=== PATIENT | female | born 1930 | race Caucasian/White ===

== ENCOUNTER → 2016-08-27 | Outpatient (CLI) | payer MEDICARE, BC ==
--- NOTE | 2016-08-27 14:43 | XR ---
EXAMINATION TYPE: XR abdomen 1V DATE OF EXAM: 08/27/2016 2:37 PM COMPARISON: 04/15/2016 INDICATION: Kidney stones TECHNIQUE: Single view abdomen frontal view FINDINGS: There is a normal bowel gas pattern. Psoas margins are normal. No organomegaly is present. Multiple calcifications overlying the spleen may be a splenic granuloma. A 1.0 cm calcifications over the inferior pole left kidney likely is a renal stone. There is a suggestion of some faint renal sto joanne over the inferior pole right kidney. IMPRESSION: 1. Inferior pole renal stones largest on the left 1.0 cm. 2. Probable splenic granuloma
== END | disposition home or self-care (01) ==
LOC: RADXRMAIN 14:18
PROVIDERS: ATTEND Urology
DX: N20.0 Calculus of kidney (principal)
CPT/HCPCS: 74000

== ENCOUNTER 2019-02-25 06:25 | Emergency (ER) | payer MEDICARE, BC ==
[2019-02-25 06:32] VITALS: BP 153/68; PULSE 60; RESP 18; TEMP 98.1
[2019-02-25] MEDS ORDERED: SODIUM CHLORIDE 0.9% 1,000 ML IV STA ×2 (06:32)
[2019-02-25] MEDS ORDERED: ONDANSETRON 4 MG/2 ML VIAL IVP STA (06:32)
[2019-02-25] MEDS ORDERED: HYDROmorphone 1 MG/ML 1 ML SYRINGE IVP STA ×2 (06:40→07:27)
--- NOTE | 2019-02-25 06:44 | ED ---
Abdominal Pain HPI - General Chief Complaint: Abdominal Pain Stated Complaint: Poss Kidney Stones Time Seen by Provider: 02/25/19 06:32 Source: patient, RN notes reviewed, old records reviewed Mode of arrival: wheelchair Limitations: no limitations - History of Present Illness Initial Comments: Patient sustained 8-year-old female with a history of kidney stones. She presents today with 2 days of left-sided flank and lower abdominal pain. She is concerned for another kidney stone. All of her P previous kidney since had be surgically removed. Patient states that she does see Dr. Ilya Cifuentes for previous kidney stones. Patient denies any fevers or chills. She states that she's been taking some Tylenol for pain with little relief. Patient states that she's had a small amount of urine production as well as small bowel movements over the past few days. She denies any vomiting but does report severe nausea. - Related Data Home Medications Medication Instructions Recorded Confirmed Biotin 5 mg PO DAILY 09/26/15 02/25/19 Cyanocobalamin [Vitamin B-12] 500 mcg PO DAILY 09/26/15 02/25/19 Ergocalciferol [Vitamin D2 50,000 unit PO TU 09/26/15 02/25/19 (DRISDOL)] Lactase [Lactaid] 3,000 unit PO DAILY PRN 09/26/15 02/25/19 Metoprolol Succinate [Toprol XL] 100 mg PO HS 09/26/15 02/25/19 Multivitamins, Thera [Multivitamin] 1 tab PO HS 09/26/15 02/25/19 Omeprazole 40 mg PO 09/26/15 02/25/19 Spironolactone 50 mg PO DAILY PRN 09/26/15 02/25/19 Telmisartan [Micardis] 80 mg PO QAM 09/26/15 02/25/19 Ubidecarenone [Co Q-10] 100 mg PO QAM 09/26/15 02/25/19 amLODIPine [Norvasc] 10 mg PO HS 09/26/15 02/25/19 ALPRAZolam [Xanax] 0.25 mg PO HS PRN 01/16/16 02/25/19 Montelukast [Singulair] 10 mg PO HS 01/16/16 02/25/19 Budecort 200 2 puff INHALATION RT-DAILY 03/21/16 02/25/19 Levothyroxine Sodium [Synthroid] 137 mcg PO DAILY 02/25/19 02/25/19 Previous Rx's Medication Instructions Recorded HYDROcodone/APAP 5-325MG [Elmore 1 tab PO Q6HR PRN #10 tab 02/25/19 5-325] Ondansetron Odt [Zofran Odt] 4 mg PO Q8HR PRN #12 tab 02/25/19 Allergies Allergy/AdvReac Type Severity Reaction Status Date / Time aspirin Allergy Rash/Hives Verified 02/25/19 08:37 flunisolide [From Nasarel] Allergy Rash/Hives Verified 02/25/19 08:37 ibuprofen Allergy Rash/Hives Verified 02/25/19 08:37 morphine Allergy red Verified 02/25/19 08:37 streaking when given in the IV atorvastatin calcium AdvReac Abdominal Verified 02/25/19 08:37 [From Lipitor] Pain clonidine HCl [From Catapres] AdvReac HYPERTENSIO Verified 02/25/19 08:37 N fenofibrate nanocrystallized AdvReac Abdominal Verified 02/25/19 08:37 [From Tricor] Pain fenofibrate,micronized AdvReac Abdominal Verified 02/25/19 08:37 [From Tricor] Pain lactose AdvReac Diarrhea Verified 02/25/19 08:37 losartan [Losartan] AdvReac Confusion Verified 02/25/19 08:37 nedocromil sodium AdvReac Unknown Verified 02/25/19 08:37 [From Tilade] Niacin Preparations AdvReac skin Verified 02/25/19 08:37 tenderness pirbuterol acetate AdvReac Rapid Verified 02/25/19 08:37 [From Maxair Autohaler] Heart Rate simvastatin [From Zocor] AdvReac Abdominal Verified 02/25/19 08:37 Pain Kmdyfgz-Rfe-Ghi Reductase AdvReac Abdominal Verified 02/25/19 08:37 Inhibitor Pain TAPE AdvReac BLISTERING Uncoded 02/25/19 08:37 AND SKIN TEARING WTIH SURGICAL TAPE W/ OR . Review of Systems ROS Statement: Those systems with pertinent positive or pertinent negative responses have been documented in the HPI. ROS Other: All systems not noted in ROS Statement are negative. Past Medical History Past Medical History: Coronary Artery Disease (CAD), Cancer, Chest Pain / Angina, Diabetes Mellitus, Deep Vein Thrombosis (DVT), Hearing Disorder / Deafness, Hyperlipidemia, Myocardial Infarction ([place]), Skin Disorder, Sleep Apnea/CPAP/BIPAP Additional Past Medical History / Comment(s): 10/06/15 EC VISIT, FALL WITH HEAD INJURY, CT SCAN WAS NEG. HISTORY OF TACHYCARDIA. SOB, LEG SWELLING. WAS NOT GIVEN BLOOD THINNERS FOR DVT. Skin ca. Kidney stones Last Myocardial Infarction Date:: AUGUST 1993 History of Any Multi-Drug Resistant Organisms: None Reported Past Surgical History: Appendectomy, Cholecystectomy, Heart Catheterization, Hysterectomy, Tonsillectomy Additional Past Surgical History / Comment(s): HEART CATH ANGIOPLASTY (1993). carpel sydney throat skin, lithotrypsy Past Anesthesia/Blood Transfusion Reactions: Motion Sickness Past Psychological History: Anxiety Smoking Status: Former smoker Past Alcohol Use History: None Reported Past Drug Use History: None Reported - Past Family History Father Additional Family Medical History / Comment(s): RUPTURED ANUERYSM. Mother Additional Family Medical History / Comment(s): skin ca General Exam - General Exam Comments Initial Comments: This is a [age]-year-old female. Alert and oriented. No distress. Limitations: no limitations General appearance: alert, in no apparent distress Head exam: Present: atraumatic, normocephalic, normal inspection Eye exam: Present: normal appearance, PERRL, EOMI. Absent: scleral icterus, conjunctival injection, periorbital swelling ENT exam: Present: normal oropharynx Neck exam: Present: normal inspection. Absent: tenderness, meningismus, lymphadenopathy Respiratory exam: Present: normal lung sounds bilaterally. Absent: respiratory distress, wheezes, rales, rhonchi, stridor Cardiovascular Exam: Present: regular rate, normal rhythm, normal heart sounds. Absent: systolic murmur, diastolic murmur, rubs, gallop, clicks GI/Abdominal exam: Present: soft, tenderness (Left lower quadrant tenderness, l eft CVA tenderness. Evidence of scarring from previous stenting procedures over bilateral flanks. ), normal bowel sounds. Absent: distended, guarding, rebound, rigid Extremities exam: Present: normal inspection, full ROM, normal capillary refill. Absent: tenderness, pedal edema, joint swelling, calf tenderness Back exam: Present: normal inspection, CVA tenderness (L) Psychiatric exam: Present: normal affect, normal mood Skin exam: Present: warm, dry, intact, normal color. Absent: rash Course Vital Signs 02/25/19 06:29 Temperature 98.1 F Pulse Rate 60 Respiratory 18 Rate Blood Pressure 153/68 O2 Sat by Pulse 95 Oximetry Medical Decision Making - Medical Decision Making This is a pleasant 88 rolled female, she presents today for evaluation for concern for left-sided flank pain for the past 2 days, nausea. At this time patient's labwork was reviewed. Blood work was reviewed and unremarkable. Normal kidney function. Urinalysis is positive for multiple red blood cells but no other signs of infection including white blood cells or bacteria. Patient at this time did receive computed tomography scan. His evidence of a 0.5 cm stone in the distal UVJ. There is multiple remaining renal colliculi bilaterally. There is mild to moderate hydronephrosis over the left ureter. Patient was informed of these results. On reevaluation she has no further pain and states she feels well like to be discharged home. I did discuss with the Patient she needs to increase her fluid intake, will discharge Patient with a prescription for nausea medicine and pain medicine. Discussed the case with Dr. Scott. All questions were answered and return parameters were discussed. - Lab Data Result diagrams: 02/25/19 06:48 02/25/19 06:48 Lab Results 02/25/19 02/25/19 02/25/19 Range/Units 06:48 06:48 06:48 WBC 11.1 H (3.8-10.6) k/uL RBC 4.76 (3.80-5.40) m/uL Hgb 14.3 (11.4-16.0) gm/dL Hct 42.3 (34.0-46.0) % MCV 88.9 (80.0-100.0) fL MCH 30.0 (25.0-35.0) pg MCHC 33.8 (31.0-37.0) g/dL RDW 12.4 (11.5-15.5) % Plt Count 192 (150-450) k/uL Neutrophils % 80 % Lymphocytes % 14 % Monocytes % 3 % Eosinophils % 1 % Basophils % 1 % Neutrophils # 8.9 H (1.3-7.7) k/uL Lymphocytes # 1.5 (1.0-4.8) k/uL Monocytes # 0.4 (0-1.0) k/uL Eosinophils # 0.2 (0-0.7) k/uL Basophils # 0.1 (0-0.2) k/uL PT 11.1 (9.0-12.0) sec INR 1.1 (<1.2) APTT 27.3 (22.0-30.0) sec Sodium 138 (137-145) mmol/L Potassium 4.4 (3.5-5.1) mmol/L Chloride 101 (98-107) mmol/L Carbon Dioxide 24 (22-30) mmol/L Anion Gap 13 mmol/L BUN 16 (7-17) mg/dL Creatinine 0.96 (0.52-1.04) mg/dL Est GFR (CKD-EPI)AfAm 62 (>60 ml/min/1.73 sqM) Est GFR (CKD-EPI)NonAf 54 (>60 ml/min/1.73 sqM) Glucose 156 H (74-99) mg/dL POC Glucose (mg/dL) (75-99) mg/dL POC Glu Bowling Ball Grader ID Calcium 9.6 (8.4-10.2) mg/dL Total Bilirubin 1.0 (0.2-1.3) mg/dL AST 28 (14-36) U/L ALT 22 (9-52) U/L Alkaline Phosphatase 91 (38-126) U/L Troponin I (0.000-0.034) ng/mL Total Protein 8.0 (6.3-8.2) g/dL Albumin 4.5 (3.5-5.0) g/dL Amylase 53 (30-110) U/L Lipase 84 (23-300) U/L Urine Color Urine Appearance (Clear) Urine pH (5.0-8.0) Ur Specific [place] (1.001-1.035) Urine Protein (Negative) Urine Glucose (UA) (Negative) Urine Ketones (Negative) Urine Blood (Negative) Urine Nitrite (Negative) Urine Bilirubin (Negative) Urine Urobilinogen (<2.0) mg/dL Ur Leukocyte Esterase (Negative) Urine RBC (0-5) /hpf Urine WBC (0-5) /hpf Ur Squamous Epith Cells (0-4) /hpf 1002/25/19 02/25/19 Range/Units 06:48 07:45 08:24 WBC (3.8-10.6) k/uL RBC (3.80-5.40) m/uL Hgb (11.4-16.0) gm/dL Hct (34.0-46.0) % MCV (80.0-100.0) fL MCH (25.0-35.0) pg MCHC (31.0-37.0) g/dL RDW (11.5-15.5) % Plt Count (150-450) k/uL Neutrophils % % Lymphocytes % % Monocytes % % Eosinophils % % Basophils % % Neutrophils # (1.3-7.7) k/uL Lymphocytes # (1.0-4.8) k/uL Monocytes # (0-1.0) k/uL Eosinophils # (0-0.7) k/uL Basophils # (0-0.2) k/uL PT (9.0-12.0) sec INR (<1.2) APTT (22.0-30.0) sec Sodium (137-145) mmol/L Potassium (3.5-5.1) mmol/L Chloride (98-107) mmol/L Carbon Dioxide (22-30) mmol/L Anion Gap mmol/L BUN (7-17) mg/dL Creatinine (0.52-1.04) mg/dL Est GFR (CKD-EPI)AfAm (>60 ml/min/1.73 sqM) Est GFR (CKD-EPI)NonAf (>60 ml/min/1.73 sqM) Glucose (74-99) mg/dL POC Glucose (mg/dL) 151 H (75-99) mg/dL POC Glu Bowling Ball Grader ID Anna Hawthorne Calcium (8.4-10.2) mg/dL Total Bilirubin (0.2-1.3) mg/dL AST (14-36) U/L ALT (9-52) U/L Alkaline Phosphatase (38-126) U/L Troponin I <0.012 (0.000-0.034) ng/mL Total Protein (6.3-8.2) g/dL Albumin (3.5-5.0) g/dL Amylase (30-110) U/L Lipase (23-300) U/L Urine Color Light Yellow Urine Appearance Clear (Clear) Urine pH 7.0 (5.0-8.0) Ur Specific [place] 1.009 (1.001-1.035) Urine Protein Negative (Negative) Urine Glucose (UA) Negative (Negative) Urine Ketones Negative (Negative) Urine Blood Small H (Negative) Urine Nitrite Negative (Negative) Urine Bilirubin Negative (Negative) Urine Urobilinogen <2.0 (<2.0) mg/dL Ur Leukocyte Esterase Negative (Negative) Urine RBC 58 H (0-5) /hpf Urine WBC 1 (0-5) /hpf Ur Squamous Epith Cells <1 (0-4) /hpf 02/25/19 06:45 EKG shows sinus rhythm with PACs, left axis deviation, inferior infarct and anterior rotation determined. Ventricular rate of 63 bpm. NV interval is 190 ms. QRS duration 74 ms. QT QTc is 398/407 ms. - Radiology Data Radiology results: report reviewed Obstructing distal left ureter vesicle junction measuring 0.5 cm. Nonobstructing distal right ureterovesical junction stone measuring to submit.2 cm. Multiple bilateral obstructing renal stones. Moderate left hydronephrosis and hydroureter at the UVJ. Diverticulosis without diverticulitis. Disposition Clinical Impression: Left ureteral stone Disposition: HOME SELF-CARE Condition: Good Instructions (If sedation given, give patient instructions): Ureteral Stones (ED) Additional Instructions: Please use medication as discussed. Please follow up with family doctor if symptoms have not improved over the next two days. Please return to the emergency room if your symptoms increase or worsen or for any other concerns. She advised a follow-up with urologist. Prescriptions: HYDROcodone/APAP 5-325MG [Elmore 5-325] 1 tab PO Q6HR PRN #10 tab PRN Reason: Pain Ondansetron Odt [Zofran Odt] 4 mg PO Q8HR PRN #12 tab PRN Reason: Pain Is patient prescribed a controlled substance at d/c from ED?: No Referrals: Greer Darling DO [Primary Care Provider] - 1-2 days Jimy Galeano MD [STAFF PHYSICIAN] - 1-2 days Time of Disposition: 10:22
[2019-02-25 07:00] LABS: Basophils # (A) 0.1 k/uL (0-0.2); Basophils % (A) 1 %; Eosinophils # (A) 0.2 k/uL (0-0.7); Eosinophils % (A) 1 %; HCT 42.3 % (34.0-46.0); HGB 14.3 gm/dL (11.4-16.0); Lymphocytes # (A) 1.5 k/uL (1.0-4.8); Lymphocytes % (A) 14 %; MCHC 33.8 g/dL (31.0-37.0); MCV 88.9 fL (80.0-100.0); Mean Platelet Volume 7.1; Monocytes # (A) 0.4 k/uL (0-1.0); Monocytes % (A) 3 %; Neutrophils # (A) 8.9 k/uL (1.3-7.7); Neutrophils % (A) 80 %; Platelet Count 192 k/uL (150-450); RBC 4.76 m/uL (3.80-5.40); RDW 12.4 % (11.5-15.5); WBC 11.1 k/uL (3.8-10.6)
[2019-02-25 07:09] LABS: INR 1.1 (<1.2); Partial Thromboplastin Time 27.3 sec (22.0-30.0); Prothrombin Time 11.1 sec (9.0-12.0)
[2019-02-25 07:11] LABS: Albumin 4.5 g/dL (3.5-5.0); Calcium 9.6 mg/dL (8.4-10.2); Potassium 4.4 mmol/L (3.5-5.1)
--- NOTE | 2019-02-25 07:28 | XR ---
EXAMINATION TYPE: XR KUB DATE OF EXAM: 02/25/2019 7:23 AM CLINICAL HISTORY: Abdominal pain TECHNIQUE: Single upright image of the abdomen is obtained. COMPARISON: 03/27/2016 FINDINGS: There are multiple left renal calculi, at least 5 in number with calcifications renal shado w and therefore additional left renal calculi are possible. The largest calculi in the left measure 1 .2 and 1.0 cm. On the right there is a solitary 4 mm 0.4 cm calculus. Cholecystectomy clips are seen. There is tortuosity and atherosclerosis of the descending thoracic aorta. Extensive degenerative jamila nges of the spine. Calcified right basilar granuloma. Moderate degenerative changes of the femoral ac etabular joints. No dilated large or small bowel. IMPRESSION: 1. Bilateral renal calculi with the largest calculus on the prior of 03/27/2016 passed in the interim 2. Nonobstructive bowel gas pattern.
[2019-02-25 08:19] LABS: Appearance,Urine Clear (Clear); Bilirubin,Urine Negative (Negative); Blood,Urine Small (Negative); Color,Urine Light Yellow; Glucose,Urine (UA) Negative (Negative); Ketones,Urine Negative (Negative); Leukocyte Esterase,Urine Negative (Negative); Nitrite,Urine Negative (Negative); Protein,Urine Negative (Negative); RBC,Urine 58 /hpf (0-5); Specific Gravity,Urine 1.009 (1.001-1.035); Squamous Epithelial Cell,Urine <1 /hpf (0-4); Urobilinogen,Urine <2.0 mg/dL (<2.0)
[2019-02-25 08:33] LABS: Glucose,Whole Blood 151 mg/dL (75-99)
[2019-02-25] MEDS ORDERED: METOCLOPRAMIDE 5 MG/ML 2 ML VIAL IVP STA (08:51)
--- NOTE | 2019-02-25 09:17 | CT ---
EXAMINATION TYPE: CT abdomen pelvis wo con DATE OF EXAM: 02/25/2019 COMPARISON: None INDICATION: Possible kidney stones DLP: 655.9 mGycm, Automated exposure control for dose reduction was used. CONTRAST: 0 mL of Isovue 300. Study performed without Oral Contrast TECHNIQUE: Axial images were obtained from above the diaphragm to the pubic rami in the axial plane a t 5 mm thick sections. Reconstructed images are reviewed on the computer in the coronal plane. FINDINGS: Limited CT sections are obtained the lung bases. The lung bases are clear. Vascular calcifications within the descending thoracic aorta. Coronary artery calcifications present. 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 CT ABDOMEN: Liver: Normal Spleen: Multiple calcified granuloma are scattered through the spleen. Pancreas: Slightly atrophic. Adrenal glands: The adrenal glands are normal. Gallbladder: Surgically absent Kidneys: No masses are evident. No cysts are present. There is a moderate left hydronephrosis and hy droureter. This extends to the left ureterovesical junction. There is an obstructing 0.5 cm calcifica tion at the ureterovesical junction on the left with a couple of punctate additional calcification sl ightly more proximal. A punctate distal right ureteral vesicle junction stone measuring 0.2 cm is not excluded. No hydronephrosis or hydroureter is evident. There is an extrarenal pelvis on the right. T here are additional calcifications within the bilateral kidneys. The largest in the inferior pole lef t kidney measuring 1.1 cm with an additional nonobstructing 1.0 cm calcification in the mid left kidn ey. Additional punctate calcifications are within the left kidney and small calcifications without ob struction or right kidney. Aorta: Vascular calcification is within the aorta. There is prominence of the abdominal aorta with t he greatest AP diameter in the infrarenal region measuring 3.3 cm previously this terminates above th e bifurcation. Inferior vena cava: Normal. CT PELVIS: Loops of bowel within the abdomen and pelvis are normal. This study is performed without oral con trast limiting bowel evaluation. There are scattered diverticuli evident of the colon without evidenc e of acute diverticulitis. Appendix: Not identified. No suspicious dilated tubular structure or inflammatory changes are evident . Urinary bladder: Normal. Genitourinary structures: Uterus is not identified. Osseous structures: No suspicious lytic or sclerotic lesions. IMPRESSIONS: 1. Obstructing distal left ureteral vesicle junction stone measuring 0.5 cm. 2. A nonobstructing distal right ureteral vesicle junction stone measuring 0.2 cm may also be present . 3. Multiple bilateral nonobstructing renal stones. 4. Moderate left hydronephrosis and hydroureter to the ureterovesical junction. 5. Diverticulosis without acute diverticulitis.
[2019-02-25] MEDS ORDERED: TAMSULOSIN 0.4 MG CAP.ER.24H PO STA (09:23)
== END 2019-02-25 11:07 | disposition home or self-care (01) ==
LOC: EC 06:25
DX: N13.2 Hydronephrosis with renal and ureteral calculous obstruction (principal); I25.10 Atherosclerotic heart disease of native coronary artery without angina pectoris; I25.2 Old myocardial infarction; G47.30 Sleep apnea, unspecified; Z99.89 Dependence on other enabling machines and devices; Z85.828 Personal history of other malignant neoplasm of skin; Z90.49 Acquired absence of other specified parts of digestive tract; Z95.818 Presence of other cardiac implants and grafts; Z90.710 Acquired absence of both cervix and uterus; Z87.891 Personal history of nicotine dependence; Z79.51 Long term (current) use of inhaled steroids; Z79.890 Hormone replacement therapy; Z79.899 Other long term (current) drug therapy; Z88.6 Allergy status to analgesic agent; Z88.8 Allergy status to other drugs, medicaments and biological substances; Z88.5 Allergy status to narcotic agent; Z91.011 Allergy to milk products; Z91.048 Other nonmedicinal substance allergy status
CPT/HCPCS: 36415; 93005; 80053; 82150; 83690; 84484; 85025; 85610; 85730; 81001; 74018; 74176; 99285; 96374; 96375 ×2; 96376; 96361 ×4; J2765; J2405; J1170

== ENCOUNTER 2021-03-22 14:16 | Observation (INO) | payer MEDICARE, BC ==
[2021-03-22 15:32] LABS: Basophils % (A) 0 %; Eosinophils # (A) 0.1 k/uL (0-0.7); Eosinophils % (A) 2 %; HCT 42.6 % (34.0-46.0); HGB 14.8 gm/dL (11.4-16.0); Lymphocytes # (A) 1.5 k/uL (1.0-4.8); Lymphocytes % (A) 21 %; MCH 31.3 pg (25.0-35.0); MCHC 34.8 g/dL (31.0-37.0); MCV 89.7 fL (80.0-100.0); Monocytes # (A) 0.3 k/uL (0-1.0); Monocytes % (A) 4 %; Neutrophils # (A) 5.1 k/uL (1.3-7.7); Neutrophils % (A) 72 %; Platelet Count 164 k/uL (150-450); RBC 4.74 m/uL (3.80-5.40); WBC 7.1 k/uL (3.8-10.6)
[2021-03-22 15:40] LABS: ALT 18 U/L (4-34); AST 27 U/L (14-36); African American GFR (CKD) 56 (>60 ml/min/1.73 sqM); Albumin 4.1 g/dL (3.5-5.0); Alcohol <10 mg/dL; Alkaline Phosphatase 77 U/L (38-126); Anion Gap 11 mmol/L; Blood Urea Nitrogen 28 mg/dL (7-17); Calcium 9.6 mg/dL (8.4-10.2); Carbon Dioxide 23 mmol/L (22-30); Chloride 103 mmol/L (98-107); Glucose 168 mg/dL (74-99); Non-African American GFR(CKD) 49 (>60 ml/min/1.73 sqM); Potassium 3.6 mmol/L (3.5-5.1); Sodium 137 mmol/L (137-145); Total Bilirubin 0.5 mg/dL (0.2-1.3); Total Protein 7.4 g/dL (6.3-8.2)
[2021-03-22 17:10] LABS: Appearance,Urine Clear (Clear); Bilirubin,Urine Negative (Negative); Blood,Urine Trace (Negative); Color,Urine Light Yellow; Glucose,Urine (UA) Negative (Negative); Hyaline Casts,Urine 3 /lpf (0-2); Ketones,Urine Negative (Negative); Leukocyte Esterase,Urine Negative (Negative); Mucus,Urine Rare /hpf; Nitrite,Urine Negative (Negative); Protein,Urine Trace (Negative); RBC,Urine 7 /hpf (0-5); Specific Gravity,Urine 1.016 (1.001-1.035); Squamous Epithelial Cell,Urine 1 /hpf (0-4); Urobilinogen,Urine <2.0 mg/dL (<2.0); WBC,Urine 2 /hpf (0-5)
[2021-03-22 17:12] LABS: Amphetamine Screen,Urine Not Detected (NotDetected); Barbiturate Screen,Urine Not Detected (NotDetected); Benzodiazepines Screen,Urine Not Detected (NotDetected); Cocaine Screen,Urine Not Detected (NotDetected); Methadone Screen, Urine Not Detected (NotDetected); Opiate Screen,Urine Not Detected (NotDetected); Oxycodone Screen, Urine Not Detected (NotDetected); Phencyclidine Screen,Urine Not Detected (NotDetected); Tricyclic Antidepressant,Urine Not Detected (NotDetected); Urn Cannabinoid Scrn Not Detected (NotDetected)
--- NOTE | 2021-03-22 19:13 | CT ---
EXAMINATION: CT brain wo con DATE AND TIME: 03/22/2021 6:39 PM CLINICAL INDICATION: PHH; ataxia TECHNIQUE: Departmental protocol. DLP: 1191.8 mGy-cm COMPARISON: 10/06/2015 FINDINGS: The calvarium is intact. There is no intracranial hemorrhage. There is no intracranial mass or mass effect. No definite new intra-axial or extra-axial attenuation defect. The paranasal sinuses, middle ear cavities, and mastoid sinus air cells are clear. The orbits are unremarkable. IMPRESSION: NO ACUTE PROCESS.
--- NOTE | 2021-03-22 19:16 | ED ---
Weakness HPI - General Chief complaint: Weakness Stated complaint: Dizzy, Blur Vision, vomiting Time Seen by Provider: 03/22/21 14:25 Source: patient Mode of arrival: wheelchair Limitations: no limitations - History of Present Illness Initial comments: 89-year-old female with multiple medical conditions presents to the emergency department with reported ataxia. Patient reports that she has had multiple episodes of feeling off balance over the past couple of months. Original episode was in January however the patient reports it was mild. She has had few additional episodes, today being the worst. Symptoms started around 11:00. She was unable to stand up straight and used a wall to ambulate. Began having some blurred vision. Denies any headaches. Admits to nausea with an episode of vomiting. No unilateral numbness or weakness. She has not been evaluated for these episodes previously. No history of strokes. Denies any ear pain. No other alleviating, precipitating or modifying factors - Related Data Home Medications Medication Instructions Recorded Confirmed Biotin 5 mg PO DAILY 09/26/15 03/22/21 Lactase [Lactaid] 3,000 unit PO DAILY PRN 09/26/15 03/22/21 Metoprolol Succinate [Toprol XL] 100 mg PO DAILY 09/26/15 03/22/21 Multivitamins, Thera [Multivitamin 1 tab PO DAILY 09/26/15 03/22/21 (formulary)] Omeprazole 40 mg PO DAILY 09/26/15 03/22/21 Ubidecarenone [Co Q-10] 200 mg PO DAILY 09/26/15 03/22/21 amLODIPine [Norvasc] 10 mg PO DAILY 09/26/15 03/22/21 ALPRAZolam [Xanax] 0.25 mg PO QID PRN 01/16/16 03/22/21 Montelukast [Singulair] 10 mg PO HS 01/16/16 03/22/21 Levothyroxine Sodium [Synthroid] 125 mcg PO DAILY 03/22/21 03/22/21 Pyridoxine HCl (Vitamin B6) 100 mg PO DAILY 03/22/21 03/22/21 [Vitamin B-6] Telmisartan/Hydrochlorothiazid 1 tab PO DAILY 03/22/21 03/22/21 [Telmisartan-Hctz 80-12.5 mg Tb] Timolol 0.5% Ophth Soln [Timoptic 1 drop BOTH EYES DAILY 03/22/21 03/22/21 0.5% Ophth Soln] Previous Rx's Medication Instructions Recorded Meclizine [Antivert] 12.5 mg PO BID PRN #15 tab 03/24/21 Allergies Allergy/AdvReac Type Severity Reaction Status Date / Time aspirin Allergy Rash/Hives Verified 03/22/21 18:15 flunisolide [From Nasarel] Allergy Rash/Hives Verified 03/22/21 18:15 ibuprofen Allergy Rash/Hives Verified 03/22/21 18:15 morphine Allergy red Verified 03/22/21 18:15 streaking when given in the IV atorvastatin calcium AdvReac Abdominal Verified 03/22/21 18:15 [From Lipitor] Pain clonidine HCl [From Catapres] AdvReac HYPERTENSIO Verified 03/22/21 18:15 N fenofibrate nanocrystallized AdvReac Abdominal Verified 03/22/21 18:15 [From Tricor] Pain fenofibrate,micronized AdvReac Abdominal Verified 03/22/21 18:15 [From Tricor] Pain lactose AdvReac Diarrhea Verified 03/22/21 18:15 losartan [Losartan] AdvReac Confusion Verified 03/24/21 14:56 nedocromil sodium AdvReac Unknown Verified 03/22/21 18:15 [From Tilade] Niacin Preparations AdvReac skin Verified 03/22/21 18:15 tenderness pirbuterol acetate AdvReac Rapid Verified 03/22/21 18:15 [From Maxair Autohaler] Heart Rate simvastatin [From Zocor] AdvReac Abdominal Verified 03/22/21 18:15 Pain Wgqzmds-Hdv-Cgl Reductase AdvReac Abdominal Verified 03/22/21 18:15 Inhibitor Pain TAPE AdvReac BLISTERING Uncoded 03/22/21 14:22 AND SKIN TEARING WTIH SURGICAL TAPE W/ OR . Review of Systems ROS Statement: Those systems with pertinent positive or pertinent negative responses have been documented in the HPI. ROS Other: All systems not noted in ROS Statement are negative. Past Medical History Past Medical History: Coronary Artery Disease (CAD), Cancer, Chest Pain / Angina, Diabetes Mellitus, Deep Vein Thrombosis (DVT), Hearing Disorder / Deafness, Hyperlipidemia, Myocardial Infarction ([place]), Skin Disorder, Sleep Apnea/CPAP/BIPAP Additional Past Medical History / Comment(s): 10/06/15 EC VISIT, FALL WITH HEAD INJURY, CT SCAN WAS NEG. HISTORY OF TACHYCARDIA. SOB, LEG SWELLING. WAS NOT GIVEN BLOOD THINNERS FOR DVT. Skin ca. Kidney stones Last Myocardial Infarction Date:: AUGUST 1993 History of Any Multi-Drug Resistant Organisms: None Reported Past Surgical History: Appendectomy, Cholecystectomy, Heart Catheterization, Hysterectomy, Tonsillectomy Additional Past Surgical History / Comment(s): HEART CATH ANGIOPLASTY (1993). carpel [place] throat skin, lithotrypsy Past Anesthesia/Blood Transfusion Reactions: Motion Sickness Past Psychological History: Anxiety Smoking Status: Never smoker Past Alcohol Use History: None Reported Past Drug Use History: None Reported - Past Family History Father Additional Family Medical History / Comment(s): RUPTURED ANUERYSM. Mother Additional Family Medical History / Comment(s): skin ca General Exam Limitations: no limitations General appearance: alert, in no apparent distress Head exam: Present: atraumatic, normocephalic, normal inspection Eye exam: Present: normal appearance, PERRL, EOMI. Absent: scleral icterus, conjunctival injection, periorbital swelling ENT exam: Present: normal exam, mucous membranes moist Neck exam: Present: normal inspection. Absent: tenderness, meningismus, lymphadenopathy Respiratory exam: Present: normal lung sounds bilaterally. Absent: respiratory distress, wheezes, rales, rhonchi, stridor Cardiovascular Exam: Present: regular rate, normal rhythm, normal heart sounds. Absent: systolic murmur, diastolic murmur, rubs, gallop, clicks GI/Abdominal exam: Present: soft, normal bowel sounds. Absent: distended, tenderness, guarding, rebound, rigid Extremities exam: Present: normal inspection, full ROM, normal capillary refill. Absent: tenderness, pedal edema, joint swelling, calf tenderness Back exam: Present: normal inspection Neurological exam: Present: alert, oriented X3, CN II-XII intact Psychiatric exam: Present: normal affect, normal mood Skin exam: Present: warm, dry, intact, normal color. Absent: rash Course Vital Signs 03/22/21 03/23/21 03/23/21 14:23 01:06 06:56 Temperature 98.1 F Pulse Rate 64 106 H 73 Respiratory 18 16 17 Rate Blood Pressure 148/62 137/84 131/69 O2 Sat by Pulse 97 95 95 Oximetry 03/23/21 03/23/21 08:42 10:14 Temperature Pulse Rate 124 H 110 H Respiratory 18 18 Rate Blood Pressure 130/72 127/75 O2 Sat by Pulse 99 98 Oximetry EKG Findings - EKG Comments: EKG Findings:: EKG demonstrates a sinus tachycardia with a ventricular rate of 111. OK interval 170. QRS 72. QTC 446. No acute ST segment elevations. Inverted T-wave in 3 and aVL. EKG is done at 2251 which demonstrates a sinus rhythm with occasional PVCs. Rate of 65. OK interval 186. QRS 80. QTC of 359. No acute ST segment elevations or depressions Medical Decision Making - Medical Decision Making Upon arrival patient was placed into room 27. A thorough history and physical exam was performed. IV is established and laboratory studies were conducted. Patient is a symptomatic at this time stating that her symptoms only lasted for hours. Laboratory studies are reviewed. 12-lead EKG was performed which d emonstrates a sinus tachycardia. Patient did go for CT of the brain as well as CT angiography due to her reported ataxia which demonstrates no acute occlusions. The patient is asymptomatic at this time. Review of the bedside monitor demonstrates that the patient has a markedly variation her heart rate. She does bradycardia down into the 40s with quick return up to a sinus tachycardia up to 115. 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 Spoke with Dr. Stiles who agreed to admit the patient. Will consult neurology and cardiology. Patient remained in stable condition awaiting a bed on the floor - Lab Data Result diagrams: 03/23/21 07:20 03/24/21 06:18 Lab Results 03/22/21 03/22/21 03/22/21 Range/Units 15:21 15:21 16:17 WBC 7.1 (3.8-10.6) k/uL RBC 4.74 (3.80-5.40) m/uL Hgb 14.8 (11.4-16.0) gm/dL Hct 42.6 (34.0-46.0) % MCV 89.7 (80.0-100.0) fL MCH 31.3 (25.0-35.0) pg MCHC 34.8 (31.0-37.0) g/dL RDW 12.0 (11.5-15.5) % Plt Count 164 (150-450) k/uL MPV 8.0 Neutrophils % 72 % Lymphocytes % 21 % Monocytes % 4 % Eosinophils % 2 % Basophils % 0 % Neutrophils # 5.1 (1.3-7.7) k/uL Lymphocytes # 1.5 (1.0-4.8) k/uL Monocytes # 0.3 (0-1.0) k/uL Eosinophils # 0.1 (0-0.7) k/uL Basophils # 0.0 (0-0.2) k/uL Sodium 137 (137-145) mmol/L Potassium 3.6 (3.5-5.1) mmol/L Chloride 103 (98-107) mmol/L Carbon Dioxide 23 (22-30) mmol/L Anion Gap 11 mmol/L BUN 28 H (7-17) mg/dL Creatinine 1.03 (0.52-1.04) mg/dL Est GFR (CKD-EPI)AfAm 56 (>60 ml/min/1.73 sqM) Est GFR (CKD-EPI)NonAf 49 (>60 ml/min/1.73 sqM) Glucose 168 H (74-99) mg/dL Calcium 9.6 (8.4-10.2) mg/dL Total Bilirubin 0.5 (0.2-1.3) mg/dL AST 27 (14-36) U/L ALT 18 (4-34) U/L Alkaline Phosphatase 77 (38-126) U/L Troponin I (0.000-0.034) ng/mL Total Protein 7.4 (6.3-8.2) g/dL Albumin 4.1 (3.5-5.0) g/dL TSH (0.465-4.680) mIU/L Urine Color Light Yellow Urine Appearance Clear (Clear) Urine pH 5.0 (5.0-8.0) Ur Specific [place] 1.016 (1.001-1.035) Urine Protein Trace H (Negative) Urine Glucose (UA) Negative (Negative) Urine Ketones Negative (Negative) Urine Blood Trace H (Negative) Urine Nitrite Negative (Negative) Urine Bilirubin Negative (Negative) Urine Urobilinogen <2.0 (<2.0) mg/dL Ur Leukocyte Esterase Negative (Negative) Urine RBC 7 H (0-5) /hpf Urine WBC 2 (0-5) /hpf Ur Squamous Epith Cells 1 (0-4) /hpf Hyaline Casts 3 H (0-2) /lpf Urine Mucus Rare H (None) /hpf Urine Opiates Screen Not Detected (NotDetected) Ur Oxycodone Screen Not Detected (NotDetected) Urine Methadone Screen Not Detected (NotDetected) Ur Propoxyphene Screen Not Detected (NotDetected) Ur Barbiturates Screen Not Detected (NotDetected) U Tricyclic Antidepress Not Detected (NotDetected) Ur Phencyclidine Scrn Not Detected (NotDetected) Ur Amphetamines Screen Not Detected (NotDetected) U Methamphetamines Scrn Not Detected (NotDetected) U Benzodiazepines Scrn Not Detected (NotDetected) Urine Cocaine Screen Not Detected (NotDetected) U Marijuana (THC) Screen Not Detected (NotDetected) Serum Alcohol <10 mg/dL 03/22/21 03/22/21 Range/Units 18:09 18:09 WBC (3.8-10.6) k/uL RBC (3.80-5.40) m/uL Hgb (11.4-16.0) gm/dL Hct (34.0-46.0) % MCV (80.0-100.0) fL MCH (25.0-35.0) pg MCHC (31.0-37.0) g/dL RDW (11.5-15.5) % Plt Count (150-450) k/uL MPV Neutrophils % % Lymphocytes % % Monocytes % % Eosinophils % % Basophils % % Neutrophils # (1.3-7.7) k/uL Lymphocytes # (1.0-4.8) k/uL Monocytes # (0-1.0) k/uL Eosinophils # (0-0.7) k/uL Basophils # (0-0.2) k/uL Sodium (137-145) mmol/L Potassium (3.5-5.1) mmol/L Chloride (98-107) mmol/L Carbon Dioxide (22-30) mmol/L Anion Gap mmol/L BUN (7-17) mg/dL Creatinine (0.52-1.04) mg/dL Est GFR (CKD-EPI)AfAm (>60 ml/min/1.73 sqM) Est GFR (CKD-EPI)NonAf (>60 ml/min/1.73 sqM) Glucose (74-99) mg/dL Calcium (8.4-10.2) mg/dL Total Bilirubin (0.2-1.3) mg/dL AST (14-36) U/L ALT (4-34) U/L Alkaline Phosphatase (38-126) U/L Troponin I <0.012 (0.000-0.034) ng/mL Total Protein (6.3-8.2) g/dL Albumin (3.5-5.0) g/dL TSH 2.240 (0.465-4.680) mIU/L Urine Color Urine Appearance (Clear) Urine pH (5.0-8.0) Ur Specific [place] (1.001-1.035) Urine Protein (Negative) Urine Glucose (UA) (Negative) Urine Ketones (Negative) Urine Blood (Negative) Urine Nitrite (Negative) Urine Bilirubin (Negative) Urine Urobilinogen (<2.0) mg/dL Ur Leukocyte Esterase (Negative) Urine RBC (0-5) /hpf Urine WBC (0-5) /hpf Ur Squamous Epith Cells (0-4) /hpf Hyaline Casts (0-2) /lpf Urine Mucus (None) /hpf Urine Opiates Screen (NotDetected) Ur Oxycodone Screen (NotDetected) Urine Methadone Screen (NotDetected) Ur Propoxyphene Screen (NotDetected) Ur Barbiturates Screen (NotDetected) U Tricyclic Antidepress (NotDetected) Ur Phencyclidine Scrn (NotDetected) Ur Amphetamines Screen (NotDetected) U Methamphetamines Scrn (NotDetected) U Benzodiazepines Scrn (NotDetected) Urine Cocaine Screen (NotDetected) U Marijuana (THC) Screen (NotDetected) Serum Alcohol mg/dL Disposition Clinical Impression: Tachy-cristhian syndrome, Ataxia, Nausea and vomiting Disposition: ADMITTED IP TO THIS [facility] Condition: Stable Is patient prescribed a controlled substance at d/c from ED?: No Decision to Admit Reason: Admit from EC Decision Date: 03/22/21 Decision Time: 20:26
--- NOTE | 2021-03-22 19:19 | CT ---
EXAMINATION TYPE: CT angio head neck with contrast and with 3-D Reconstruction rendering DATE OF EXAM: 03/22/2021 HISTORY: Ataxia COMPARISON: None CT DLP: 445.9 mGycm. Automated Exposure Control for Dose Reduction was Utilized. TECHNIQUE: CTA scan of the neck is performed with IV Contrast, patient injected with 65 mL of Isovue 370, axial images are obtained, coronal and sagittal reformatted images are reviewed. 3D reconstruct ed images are created on an independent workstation and reviewed. FINDINGS: ARTERIAL STRUCTURES: The right carotid system and the left carotid system are widely patent, without hemodynamically significant stenoses, dissection, or other focal abnormalities. The bilateral vertebral arterial systems are widely patent, without hemodynamically significant steno ses, dissection, or other focal abnormalities. The intracranial arterial structures demonstrate unremarkable anterior circulation and posterior circ ulation, without significant abnormalities. OTHER: No incidental dural venous finding, cervical venous finding, or extravascular findings through out the head and neck. IMPRESSION: NO SIGNIFICANT ABNORMALITY. NASCET criteria was used in interpretation of this exam?
[2021-03-22] MEDS ORDERED: NALOXONE 0.4 MG/ML 1 ML VIAL IV PRN (20:26)
[2021-03-23] MEDS ORDERED: LACTASE 3000 UNIT PO PRN (00:53)
[2021-03-23] MEDS: MONTELUKAST 10 MG TAB PO SCH ×2 (01:30→22:08)
[2021-03-23] MEDS ORDERED: ALPRAZolam 0.25 MG TAB PO PRN (06:00)
[2021-03-23 06:52] LABS: Glucose,Whole Blood 109 mg/dL (75-99)
[2021-03-23 08:04] LABS: Basophils % (A) 1 %; Eosinophils # (A) 0.1 k/uL (0-0.7); Eosinophils % (A) 2 %; HCT 43.1 % (34.0-46.0); HGB 14.9 gm/dL (11.4-16.0); Lymphocytes % (A) 34 %; MCHC 34.5 g/dL (31.0-37.0); MCV 89.9 fL (80.0-100.0); Mean Platelet Volume 7.8; Monocytes # (A) 0.3 k/uL (0-1.0); Monocytes % (A) 5 %; Neutrophils # (A) 3.4 k/uL (1.3-7.7); Neutrophils % (A) 57 %; Platelet Count 165 k/uL (150-450); RBC 4.79 m/uL (3.80-5.40); RDW 12.6 % (11.5-15.5); WBC 5.9 k/uL (3.8-10.6)
[2021-03-23 08:07] LABS: Calcium 9.3 mg/dL (8.4-10.2); Potassium 3.5 mmol/L (3.5-5.1)
[2021-03-23] MEDS: LEVOTHYROXINE 125 MCG TAB PO SCH (08:44)
[2021-03-23] MEDS: MULTIVITAMINS, THERA 1 EACH TAB PO SCH (08:47)
[2021-03-23] MEDS: PANTOPRAZOLE 40 MG TABLET PO SCH (08:48)
[2021-03-23] MEDS: hydroCHLOROthiazide 12.5 MG CAP PO SCH (08:48)
[2021-03-23] MEDS: PYRIDOXINE 50 MG TAB PO SCH (08:49)
[2021-03-23] MEDS ORDERED: NON FORMULARY DRUG (Ubidecarenone [Co Q-10] 100 MG Capsule) PO SCH (09:00)
[2021-03-23] MEDS ORDERED: METOPROLOL SUCCINATE (ER) 100 MG TAB.ER.24H PO SCH (09:00)
[2021-03-23] MEDS ORDERED: amLODIPine 10 MG TAB PO SCH ×2 (09:00→21:00)
[2021-03-23] MEDS ORDERED: LOSARTAN 50 MG TAB PO SCH (09:00)
[2021-03-23] MEDS ORDERED: NON FORMULARY DRUG (Biotin [Biotin] 5 MG Capsule) PO SCH (09:00)
--- NOTE | 2021-03-23 11:03 | P.CNNES ---
History of Present Illness Consult date: 03/23/21 Requesting physician: Mandi Steel Reason for Consult: acute ataxia History of Present Illness: This is an 89-year-old woman with medical history of diabetes mellitus, coronary artery disease, sleep apnea, DVT, very hard of hearing, hyperlipidemia who presented to the emergency department on 03/22/2021 for feeling off balance for past couple days. She said it was most prominent yesterday and had to hang on to wall on either side and was not swaying toward one side or other. She was feeling dizzy but could not describe for me but it was with movement. She has nausea and mild vomiting. She has chronic ringing of the ears and hearing loss and has hearing aids but nothing worsened. She denies any focal weakness, numbness, any new visual disturbance. She denies any difficulty getting words out or swallowing. She said about a couple weeks ago she had episode where left eye was blurry and dim and lasted for a second or few seconds. She denies of any history of stroke. Patient is not on any antiplatelets or statins. Patient is ALLERGIC to aspirin and Lipitor that is listed as her ALLERGY medication. Patient could not tell me her allergy. 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 Some of the workup in the hospital consisted of Initial vital signs his blood pressure of 148/62, heart rate of 64, respiratory of 18, temperature of 98.1 Fahrenheit oral and pulse ox of 97% at room air. CBC with differential is unremarkable. Sodium is 139, creatinine is 0.93, initial serum glucose 168, calcium is 9.6, AST is 27, ALT of 18. TSH is 2.240. Toxicology screen is nondetected the serum alcohol was less than 10. Albarran virus PCR is nondetected that. CT of the head is reported as no acute process. I personally reviewed the CT of the head and there is no appreciable acute or subacute ischemia there is no truncal hemorrhage. EKG angiography of the head and neck was reported as no significant abnormality. Review of Systems Review of system: The 12 point system was reviewed and apparent positive and negative per HPI. Past Medical History Past Medical History: Coronary Artery Disease (CAD), Cancer, Chest Pain / Angina, Diabetes Mellitus, Deep Vein Thrombosis (DVT), Hearing Disorder / Deafness, Hyperlipidemia, Myocardial Infarction ([place]), Skin Disorder, Sleep Apnea/CPAP/BIPAP Additional Past Medical History / Comment(s): 10/06/15 EC VISIT, FALL WITH HEAD INJURY, CT SCAN WAS NEG. HISTORY OF TACHYCARDIA. SOB, LEG SWELLING. WAS NOT GIVEN BLOOD THINNERS FOR DVT. Skin ca. Kidney stones Last Myocardial Infarction Date:: AUGUST 1993 History of Any Multi-Drug Resistant Organisms: None Reported Past Surgical History: Appendectomy, Cholecystectomy, Heart Catheterization, Hysterectomy, Tonsillectomy Additional Past Surgical History / Comment(s): HEART CATH ANGIOPLASTY (1993). carpel [place] throat skin, lithotrypsy Past Anesthesia/Blood Transfusion Reactions: Motion Sickness Past Psychological History: Anxiety Smoking Status: Never smoker Past Alcohol Use History: None Reported Past Drug Use History: None Reported - Past Family History Father Additional Family Medical History / Comment(s): RUPTURED ANUERYSM. Mother Additional Family Medical History / Comment(s): skin ca Medications and Allergies Home Medications Medication Instructions Recorded Confirmed Type Biotin 5 mg PO DAILY 09/26/15 03/22/21 History Lactase [Lactaid] 3,000 unit PO DAILY PRN 09/26/15 03/22/21 History Metoprolol Succinate [Toprol XL] 100 mg PO DAILY 09/26/15 03/22/21 History Multivitamins, Thera [Multivitamin] 1 tab PO DAILY 09/26/15 03/22/21 History Omeprazole 40 mg PO DAILY 09/26/15 03/22/21 History Ubidecarenone [Co Q-10] 200 mg PO DAILY 09/26/15 03/22/21 History amLODIPine [Norvasc] 10 mg PO DAILY 09/26/15 03/22/21 History ALPRAZolam [Xanax] 0.25 mg PO QID PRN 01/16/16 03/22/21 History Montelukast [Singulair] 10 mg PO HS 01/16/16 03/22/21 History Levothyroxine Sodium [Synthroid] 125 mcg PO DAILY 03/22/21 03/22/21 History Pyridoxine HCl (Vitamin B6) 100 mg PO DAILY 03/22/21 03/22/21 History [Vitamin B-6] Telmisartan/Hydrochlorothiazid 1 tab PO DAILY 03/22/21 03/22/21 History [Telmisartan-Hctz 80-12.5 mg Tb] Timolol 0.5% Oph Soln [Timoptic 1 drop BOTH EYES DAILY 03/22/21 03/22/21 History 0.5% Ophth Soln] Allergies Allergy/AdvReac Type Severity Reaction Status Date / Time aspirin Allergy Rash/Hives Verified 03/22/21 18:15 flunisolide [From Nasarel] Allergy Rash/Hives Verified 03/22/21 18:15 ibuprofen Allergy Rash/Hives Verified 03/22/21 18:15 morphine Allergy red Verified 03/22/21 18:15 streaking when given in the IV atorvastatin calcium AdvReac Abdominal Verified 03/22/21 18:15 [From Lipitor] Pain clonidine HCl [From Catapres] AdvReac HYPERTENSIO Verified 03/22/21 18:15 N fenofibrate nanocrystallized AdvReac Abdominal Verified 03/22/21 18:15 [From Tricor] Pain fenofibrate,micronized AdvReac Abdominal Verified 03/22/21 18:15 [From Tricor] Pain lactose AdvReac Diarrhea Verified 03/22/21 18:15 losartan [Losartan] AdvReac Confusion Verified 03/22/21 18:15 nedocromil sodium AdvReac Unknown Verified 03/22/21 18:15 [From Tilade] Niacin Preparations AdvReac skin Verified 03/22/21 18:15 tenderness pirbuterol acetate AdvReac Rapid Verified 03/22/21 18:15 [From Maxair Autohaler] Heart Rate simvastatin [From Zocor] AdvReac Abdominal Verified 03/22/21 18:15 Pain Rguoqxo-Doe-Jle Reductase AdvReac Abdominal Verified 03/22/21 18:15 Inhibitor Pain TAPE AdvReac BLISTERING Uncoded 03/22/21 14:22 AND SKIN TEARING WTIH SURGICAL TAPE W/ OR . Physical Examination - Vital Signs Vital Signs: Vital Signs Temp Pulse Resp BP Pulse Ox 03/23/21 10:14 110 H 18 127/75 98 03/23/21 08:42 124 H 18 130/72 99 03/23/21 06:56 73 17 131/69 95 03/23/21 01:06 106 H 16 137/84 95 03/22/21 14:23 98.1 F 64 18 148/62 97 GENERAL: The patient is lying in bed and is not in acute distress. CHEST: The heart rate is regular rate rhythm. No murmurs to auscultation. LUNG: Clear to auscultation bilaterally no wheezing noted throughout. Not labored breathing. ABDOMEN/GI: Bowel sounds present in all 4 quadrants. No tenderness to palpation throughout. NEUROLOGICAL: Higher mental function: The patient is awake, alert, oriented to self, place and time. Patient is following commands. No aphasia and no neglect. Cranial nerves: The pupils are round, equal and reactive to light and accommodation. Visual gordon are full to confrontation throughout. Extraocular movement is intact no nystagmus is noted. Facial sensation is normal to touch throughout. The facial strength is normal throughout. Hearing is moderately to severely decreased bilaterally to hand rub (has hearing aids). Tongue is midline and moved [id number] without any difficulty. No dysarthria is noted. Shoulder shrug is normal bilaterally. Motor: Gait is normal with normal arm swings. The strength is 5 over 5 throughout. Normal tone and bulk. Cerebellum: Normal finger to nose bilaterally. Sensation: Sensation is normal to touch throughout. Reflexes (right/left): 1+ Plantars are downgoing bilaterally. Results - Laboratory Findings CBC and BMP: 03/23/21 07:20 03/23/21 07:25 Abnormal Lab Findings: Abnormal Labs 03/22/21 03/22/21 03/23/21 15:21 16:17 06:51 BUN 28 H Glucose 168 H POC Glucose (mg/dL) 109 H Urine Protein Trace H Urine Blood Trace H Urine RBC 7 H Hyaline Casts 3 H Urine Mucus Rare H 03/23/21 07:25 BUN 20 H Glucose 112 H POC Glucose (mg/dL) Urine Protein Urine Blood Urine RBC Hyaline Casts Urine Mucus Assessment and Plan Assessment: Acute Vertigo with nausea, vomiting and usnteady walking: Rule out central cause (stroke) vs peripheral Had episode of left blurry vision and felt left eye was dim that was short lasting seem Amoursis Fugax Chronic ringing of both ears History of diabetes mellitus History of coronary artery disease Sleep apnea Hyperlipidemia Hard of hearing of both ears and has hearing aids Plan: I ordered MRI of the brain. Recommend starting Plavix 75 mg daily but patient stated she does not want any antiplatelets since she bruises easily (she was told to think about it and let us know if changes her mind). Patient is allergic to Aspirin. I will not start the patient on statin since the patient is ALLERGIC to statins. I'll place the patient on every 4 hours neuro checks 2-D echo was ordered by the cardiology team. Consulted the PT and OT Ordered the hemoglobin A1c, vitamin B12 and folate level. Continue cardiac monitoring We'll defer the rest of medical management to the primary team. For DVT prophylaxis will defer the management to the primary team Upon discharge the patient needs to follow-up with a neurologist as outpatient within 1-2 weeks. Also recommend patient to follow-up with ENT patient's she has chronic ringing in both ears. The plan is discussed with the patient and her nurse. Thank you for the consultation. Adonay Orozco M.D. Neuro-hospitalist Time with Patient: Greater than 30
[2021-03-23] MEDS: TIMOLOL 0.5% OPHTH DROPS 5 ML BTL BOTH EYES SCH (11:44)
--- NOTE | 2021-03-23 13:06 | ECHOF ---
Referral Reason:tachycardia MEASUREMENTS -------- HEIGHT: 127.0 cm WEIGHT: 70.8 kg BP: RVIDd: 3.1 cm (< 3.3) IVSd: 1.0 cm (0.6 - 1.1) LVIDd: 4.7 cm (3.9 - 5.3) LVPWd: 1.2 cm (0.6 - 1.1) IVSs: 1.2 cm LVIDs: 3.6 cm LVPWs: 1.3 cm LA Diam: 3.1 cm (2.7 - 3.8) LAESV Index (A-L): 44.41 ml/m Ao Diam: 3.7 cm (2.0 - 3.7) AV Cusp: 1.8 cm (1.5 - 2.6) LA Diam: 3.4 cm (2.7 - 3.8) MV EXCURSION: 16.963 mm (> 18.000) MV EF SLOPE: 58 mm/s (70 - 150) EPSS: 1.2 cm MV E Kash: 0.64 m/s MV DecT: 402 ms MV A Kash: 1.04 m/s MV E/A Ratio: 0.62 AR PHT: 575 ms RAP: 5.00 mmHg RVSP: 28.91 mmHg FINDINGS -------- Sinus rhythm. This was a technically adequate study. LV size, wall thickness and systolic function are normal, with an EF greater than 55%. The left marty tricular size is normal. The right ventricle is normal in size. LA is severely dilated >40 ml/m2 The right atrial size is normal. There is mild aortic valve sclerosis. There is mild aortic regurgitation. Mild mitral annular calcification present. Gkuh-kk-selyuykv mitral regurgitation is present. The tricuspid valve appears structurally normal. Mild tricuspid regurgitation present. Right vent ricular systolic pressure is normal at < 35 mmHg. There is no pulmonic regurgitation present. The aortic root size is normal. There is no pericardial effusion. CONCLUSIONS -------- 1. LV size, wall thickness and systolic function are normal, with an EF greater than 55%. 2. LA is severely dilated >40 ml/m2 3. There is mild aortic valve sclerosis. 4. There is mild aortic regurgitation. 5. Mild mitral annular calcification present. 6. Tynr-ni-vttydoeo mitral regurgitation is present. 7. Mild tricuspid regurgitation present. 8. There is no pericardial effusion. MENTAL HEALTH TECHNICIAN: Chelsea Lee RDCS
--- NOTE | 2021-03-23 13:21 | CONS ---
CONSULTATION Mrs. Watkins is an 89-year-old female with known history of coronary artery disease, history of paroxysmal fibrillation as well as atrial tachycardia who presented to the emergency room with symptoms of unsteadiness. She had ataxia with nausea. Cardiology consultation was requested because of the arrhythmia. Patient feels some of the palpitations on and off. She felt nauseated and vomiting. She had no chest discomfort. She has mild chronic peripheral edema. No clear PND or orthopnea. She has not been anticoagulated in the past. In the past, her left ventricular systolic function was preserved and she had percutaneous revascularization of her left circumflex in 1993 with no clear evidence of recurrent ischemic changes. Her coronary risk factors are remarkable for history of hyperlipidemia, hypertension and diabetes, diet-controlled. Her medication included Telmisartan/hydrochlorothiazide 80/12.5 mg daily, omeprazole, Singulair, Toprol-XL 100 mg daily, amlodipine 10 mg daily, biotin. REVIEW OF SYSTEMS: RESPIRATORY SYSTEM: She has no recent wheezing. She has mild dyspnea. No cough. GI SYSTEM: She had the nausea and the vomiting. No GI bleeding. SYSTEM: No dysuria or hematuria. NERVOUS SYSTEM: She has the unsteadiness and the ataxia. PHYSICAL EXAMINATION: She is an 89-year-old female, alert, oriented, in no apparent distress. Blood pressure 130/70 with a heart rate running in the 120s; earlier it was in the 70s and sinus. HEAD: Normocephalic. EYES: Sclerae anicteric. NECK: Good carotid upstroke. No bruit. No jugular venous distention. LUNGS: Clear to auscultation. HEART: Tachycardic. S1, S2. No S3. Systolic murmur heard at the base, ejection type 2/6, no diastolic murmur. No rub. ABDOMEN: Soft, nontender. Positive bowel sounds. No organomegaly. EXTREMITIES: Trace edema. LAB DATA: Lab data revealed BUN and creatinine of 28 and 1.03, troponin less than 0.012. TSH of 2.24. Hemoglobin of 14.8. Her initial EKG shows what appears to be atrial tachycardia or ectopic atrial rhythm. Subsequent EKG shows a sinus mechanism with rare PVCs and poor R-wave progression with nonspecific ST-T wave changes. Cannot exclude an anteroapical myocardial infarction. She underwent a CT angiogram that revealed no significant abnormalities. IMPRESSION: 1. Symptoms of unsteadiness and ataxia not clearly related to her arrhythmia. 2. Prior history of paroxysmal atrial flutter/fibrillation with episode of atrial tachycardia. 3. History of coronary artery disease; appears to be stable. 4. History of hypertension. 5. Hyperlipidemia. RECOMMENDATIONS: At this time I will continue on the beta josefa. I will obtain echocardiogram with Doppler. Patient will require evaluation for anticoagulation down the road. She will be evaluated by the neurology service and, depending on her findings, further recommendations will be made. Thank you for this consult. Will follow with you. MMODL / IJN: [id number] /
--- NOTE | 2021-03-23 17:04 | MR ---
EXAMINATION TYPE: MR brain wo con DATE OF EXAM: 03/23/2021 COMPARISON: None HISTORY: Vertigo, unsteady gait, evaluate for stroke. Multiplanar multiecho imaging of the brain without contrast. There is diffuse cerebral atrophy. There is no mass effect nor midline shift. There is no evidence of intracranial hemorrhage. Diffusion images show no definite evidence for an acute infarct. There is extensive patchy white matter increased signal on the T2 and FLAIR images around the lateral ventricles at the jonas-white matter junction of both cerebral hemispheres. These are somewhat coales cent and measure up to 1 cm. Brainstem is intact. Cerebellum is intact. Corpus callosum appears intac t. Sella turcica appears normal. There is no evidence of orbital mass. IMPRESSION: Cerebral atrophy. Extensive white matter signal changes consistent with chronic small vessel ischemia . Demyelinating disease not excluded. No evidence of a cortical infarct.
[2021-03-23 17:50] LABS: Glucose,Whole Blood 134 mg/dL (75-99)
[2021-03-23 20:15] LABS: Glucose,Whole Blood 159 mg/dL (75-99)
[2021-03-23] MEDS ORDERED: ACETAMINOPHEN TAB 325 MG TAB PO PRN (22:07)
[2021-03-23 22:18] LABS: Folate, Serum >20.00 ng/mL (4.40-31.00)
--- NOTE | 2021-03-23 22:20 | P.HPIM ---
History of Present Illness H&P Date: 03/23/21 Chief Complaint: vertigo, ataxia Shazia Watkins is an 89 yo F with PMH of CAD, paroxysmal SVT, hx DVT who presented to the ED complaining of veritgo, tinnitus and difficulty ambulating. She complains that over the past few weeks she has noticed episodes where she will feel dizzy or off balance and yesterday it lasted almost 4 hours and she was noticing difficuty ambulating as well so came in. She denies any chest pain, shortness of breath, fever, chills. She does endorse some palpitations and nausea. On presentation vitals unremarkable, pt tachycardic, labs otherweise wnl. CT and CTA head unremarkable. Review of Systems All systems: negative Constitutional: Reports malaise, Denies chills, Denies fever Eyes: denies blurred vision, denies pain Ears, nose, mouth and throat: Denies headache, Denies sore throat Cardiovascular: Denies chest pain, Denies shortness of breath Respiratory: Denies cough Gastrointestinal: Denies abdominal pain, Denies diarrhea, Denies nausea, Denies vomiting Genitourinary: Denies dysuria, Denies hematuria Musculoskeletal: Denies myalgias Integumentary: Denies pruritus, Denies rash Neurological: Reports ataxia, Reports balance difficulties, Reports vertigo, Denies numbness, Denies weakness Psychiatric: Denies anxiety, Denies depression Endocrine: Denies fatigue, Denies weight change Past Medical History Past Medical History: Coronary Artery Disease (CAD), Cancer, Chest Pain / Angina, Diabetes Mellitus, Deep Vein Thrombosis (DVT), Hearing Disorder / Deafness, Hyperlipidemia, Myocardial Infarction ([place]), Skin Disorder, Sleep Apnea/CPAP/BIPAP Additional Past Medical History / Comment(s): 10/06/15 EC VISIT, FALL WITH HEAD INJURY, CT SCAN WAS NEG. HISTORY OF TACHYCARDIA. SOB, LEG SWELLING. WAS NOT GIVEN BLOOD THINNERS FOR DVT. Skin ca. Kidney stones Last Myocardial Infarction Date:: AUGUST 1993 History of Any Multi-Drug Resistant Organisms: None Reported Past Surgical History: Appendectomy, Cholecystectomy, Heart Catheterization, Hysterectomy, Tonsillectomy Additional Past Surgical History / Comment(s): HEART CATH ANGIOPLASTY (1993). carpel [place] throat skin, lithotrypsy Past Anesthesia/Blood Transfusion Reactions: Motion Sickness Past Psychological History: Anxiety Smoking Status: Never smoker Past Alcohol Use History: None Reported Past Drug Use History: None Reported - Past Family History Father Additional Family Medical History / Comment(s): RUPTURED ANUERYSM. Mother Additional Family Medical History / Comment(s): skin ca Medications and Allergies Home Medications Medication Instructions Recorded Confirmed Type Biotin 5 mg PO DAILY 09/26/15 03/22/21 History Lactase [Lactaid] 3,000 unit PO DAILY PRN 09/26/15 03/22/21 History Metoprolol Succinate [Toprol XL] 100 mg PO DAILY 09/26/15 03/22/21 History Multivitamins, Thera [Multivitamin] 1 tab PO DAILY 09/26/15 03/22/21 History Omeprazole 40 mg PO DAILY 09/26/15 03/22/21 History Ubidecarenone [Co Q-10] 200 mg PO DAILY 09/26/15 03/22/21 History amLODIPine [Norvasc] 10 mg PO DAILY 09/26/15 03/22/21 History ALPRAZolam [Xanax] 0.25 mg PO QID PRN 01/16/16 03/22/21 History Montelukast [Singulair] 10 mg PO HS 01/16/16 03/22/21 History Levothyroxine Sodium [Synthroid] 125 mcg PO DAILY 03/22/21 03/22/21 History Pyridoxine HCl (Vitamin B6) 100 mg PO DAILY 03/22/21 03/22/21 History [Vitamin B-6] Telmisartan/Hydrochlorothiazid 1 tab PO DAILY 03/22/21 03/22/21 History [Telmisartan-Hctz 80-12.5 mg Tb] Timolol 0.5% Ophth Soln [Timoptic 1 drop BOTH EYES DAILY 03/22/21 03/22/21 History 0.5% Ophth Soln] Allergies Allergy/AdvReac Type Severity Reaction Status Date / Time aspirin Allergy Rash/Hives Verified 03/22/21 18:15 flunisolide [From Nasarel] Allergy Rash/Hives Verified 03/22/21 18:15 ibuprofen Allergy Rash/Hives Verified 03/22/21 18:15 morphine Allergy red Verified 03/22/21 18:15 streaking when given in the IV atorvastatin calcium AdvReac Abdominal Verified 03/22/21 18:15 [From Lipitor] Pain clonidine HCl [From Catapres] AdvReac HYPERTENSIO Verified 03/22/21 18:15 N fenofibrate nanocrystallized AdvReac Abdominal Verified 03/22/21 18:15 [From Tricor] Pain fenofibrate,micronized AdvReac Abdominal Verified 03/22/21 18:15 [From Tricor] Pain lactose AdvReac Diarrhea Verified 03/22/21 18:15 losartan [Losartan] AdvReac Confusion Verified 03/22/21 18:15 nedocromil sodium AdvReac Unknown Verified 03/22/21 18:15 [From Tilade] Niacin Preparations AdvReac skin Verified 03/22/21 18:15 tenderness pirbuterol acetate AdvReac Rapid Verified 03/22/21 18:15 [From Maxair Autohaler] Heart Rate simvastatin [From Zocor] AdvReac Abdominal Verified 03/22/21 18:15 Pain Jbbyikv-Htg-Huu Reductase AdvReac Abdominal Verified 03/22/21 18:15 Inhibitor Pain TAPE AdvReac BLISTERING Uncoded 03/22/21 14:22 AND SKIN TEARING WTIH SURGICAL TAPE W/ OR . Physical Exam Vitals: Vital Signs Temp Pulse Pulse Resp BP BP Pulse Ox 03/23/21 20:00 98.1 F 54 L 16 132/66 94 L 03/23/21 18:20 52 L 03/23/21 17:25 98.2 F 51 L 16 157/76 94 L 03/23/21 10:14 110 H 18 127/75 98 03/23/21 08:42 124 H 18 130/72 99 03/23/21 06:56 73 17 131/69 95 03/23/21 01:06 106 H 16 137/84 95 Intake and Output 03/23/21 03/23/21 03/23/21 06:59 14:59 22:59 Intake Total 240 Balance 240 Intake: Oral 240 Other: Weight 70.76 kg General: well nourished, well developed, NAD. Vitals reviewed Eyes: PERRL, EOMI, conjunctiva normal HENT: normocephalic, mucus membranes moist Neck: supple, no JVD Lungs: normal respiratory effort, no wheezes or rales CV: Regular rate and rhythm, no murmur. Peripheral pulses 2+ Abdomen: soft, nondistended, no organomegaly Lymph: no cervical or axillary LAD Skin: warm and dry. Neuro: A&Ox3, normal mood and affect Results CBC & Chem 7: 03/23/21 07:20 03/23/21 07:25 Labs: Abnormal Lab Results - Last 24 Hours (Table) 03/23/21 03/23/21 03/23/21 Range/Units 06:51 07:25 17:48 BUN 20 H (7-17) mg/dL Glucose 112 H (74-99) mg/dL POC Glucose (mg/dL) 109 H 134 H (75-99) mg/dL 03/23/21 Range/Units 20:14 BUN (7-17) mg/dL Glucose (74-99) mg/dL POC Glucose (mg/dL) 159 H (75-99) mg/dL Thrombosis Risk Factor Assmnt - Choose All That Apply Any of the Below Risk Factors Present?: No Other Risk Factors: Yes Each Risk Factor Represents 3 Points: Age 75 years or older Thrombosis Risk Factor Assessment Total Risk Factor Score: 3 Thrombosis Risk Factor Assessment Level: Moderate Risk Assessment and Plan Plan: 1. AMS, syncope. Question relation to SVT. Rule out neurological cause. Consult neuro, MRI ordered. Recommend plavix 2. Paroxysmal SVT. CAD. Cardiology consult. Continue metoprolol, ARB. Consider statin
[2021-03-24 07:13] LABS: African American GFR (CKD) 68 (>60 ml/min/1.73 sqM); Anion Gap 7 mmol/L; Blood Urea Nitrogen 20 mg/dL (7-17); Calcium 9.3 mg/dL (8.4-10.2); Carbon Dioxide 28 mmol/L (22-30); Chloride 102 mmol/L (98-107); Glucose 126 mg/dL (74-99); Non-African American GFR(CKD) 59 (>60 ml/min/1.73 sqM); Sodium 137 mmol/L (137-145)
[2021-03-24 07:14] LABS: Potassium 3.8 mmol/L (3.5-5.1)
[2021-03-24 07:50] LABS: Glucose,Whole Blood 121 mg/dL (75-99)
[2021-03-24] MEDS: hydroCHLOROthiazide 12.5 MG CAP PO SCH (08:39)
[2021-03-24] MEDS: LEVOTHYROXINE 125 MCG TAB PO SCH (08:39)
[2021-03-24] MEDS: MULTIVITAMINS, THERA 1 EACH TAB PO SCH (08:39)
[2021-03-24] MEDS: PYRIDOXINE 50 MG TAB PO SCH (08:40)
[2021-03-24] MEDS: PANTOPRAZOLE 40 MG TABLET PO SCH (08:40)
[2021-03-24] MEDS: TIMOLOL 0.5% OPHTH DROPS 5 ML BTL BOTH EYES SCH (08:40)
[2021-03-24] MEDS ORDERED: LOSARTAN 50 MG TAB PO SCH (09:00)
[2021-03-24] MEDS ORDERED: MECLIZINE 12.5 MG TAB PO PRN (10:49)
--- NOTE | 2021-03-24 14:38 | P.PN ---
Subjective Progress Note Date: 03/24/21 Patient is seen at bedside and states she is doing well. Denies any focal weakness or numbness. Objective - Vital Signs Vital signs: Vital Signs Temp 97.4 F L 03/24/21 07:00 Pulse 53 L 03/24/21 08:00 Resp 16 03/24/21 08:00 BP 143/69 03/24/21 07:00 Pulse Ox 96 03/24/21 07:00 Intake & Output 03/23/21 03/24/21 03/24/21 18:59 06:59 18:59 Intake Total 240 Balance 240 Weight 70.76 kg Intake: Oral 240 Other: Voiding Method Toilet Toilet # Voids 2 - Exam GENERAL: The patient is lying in bed and is not in acute distress. NEUROLOGICAL: Higher mental function: The patient is awake, alert, oriented to self, place and time. Patient is following commands. No aphasia and no neglect. Cranial nerves: The pupils are round, equal and reactive to light and accommodation. Visual gordon are full to confrontation throughout. Extraocular movement is intact no nystagmus is noted. Facial sensation is normal to touch throughout. The facial strength is normal throughout. Hearing is moderately to severely decreased bilaterally to hand rub (has hearing aids). Tongue is midline and moved [id number] without any difficulty. No dysarthria is noted. Shoulder shrug is normal bilaterally. Motor: Gait is normal with normal arm swings. The strength is 5 over 5 throughout. Normal tone and bulk. Cerebellum: Normal finger to nose bilaterally. Sensation: Sensation is normal to touch throughout. Reflexes (right/left): 1+ Plantars are downgoing bilaterally. WORK-UP: TSH is 2.240. I am B12 is 1148. Serum folate is more than 20. Hemoglobin A1c is 5.9. Toxicology screen is nondetected the serum alcohol was less than 10. Albarran virus PCR is nondetected that. CT of the head is reported as no acute process. I personally reviewed the CT of the head and there is no appreciable acute or subacute ischemia there is no truncal hemorrhage. MRI the brain is reported as cerebral atrophy. Extensive white matter signal changes consistent with chronic small vessel ischemia. Demyelinating disease not excluded. No evidence of a cortical infarct. I personally reviewed the MRI the brain and I do not feel patient has acute or subacute ischemia seen on the MRI. I do not believe the patient has D monitoring disease at. I feel the white matter likely is due to small vessel disease. 2-D echo was reported as left ventricular size thickness are normal. Ejection fraction greater than 55%. Left atrium is severely dilated. Mild to moderate mitral regurgitation is present. - Labs CBC & Chem 7: 03/23/21 07:20 03/24/21 06:18 Labs: Abnormal Lab Results - Last 24 Hours (Table) 03/23/21 03/23/21 03/23/21 Range/Units 07:25 17:48 20:14 BUN (7-17) mg/dL Glucose (74-99) mg/dL POC Glucose (mg/dL) 134 H 159 H (75-99) mg/dL Vitamin B12 1148.0 H (200.0-944.0) pg/mL 03/24/21 03/24/21 Range/Units 06:18 07:43 BUN 20 H (7-17) mg/dL Glucose 126 H (74-99) mg/dL POC Glucose (mg/dL) 121 H (75-99) mg/dL Vitamin B12 (200.0-944.0) pg/mL Assessment and Plan Assessment: * Acute Vertigo with nausea, vomiting and usnteady walking: Seems peripheral. 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 Patient is allergic to Aspirin. I will not start the patient on statin since the patient is ALLERGIC to statins. * On neuro checks * PT and OT are consulted * On cardiac monitoring * We'll defer the rest of medical management to the primary team. * For DVT prophylaxis will defer the management to the primary team * Upon discharge the patient needs to follow-up with a neurologist as outpatient within 1-2 weeks. Also recommend patient to follow-up with ENT specialist since she has chronic ringing in both ears. The plan is discussed with the patient, her daughter who is at bedside and her nurse. There is no further neurological work-up. Neurology will sign off. Please reconsult if needed. Adonay Orozco M.D. Neuro-hospitalist Time with Patient: Less than 30
--- NOTE | 2021-03-24 15:08 | P.PN ---
Subjective Progress Note Date: 03/24/21 HISTORY OF PRESENT ILLNESS This is an 89 year old female patient with past medical history of coronary art jovana disease, paroxysmal atrial fibrillation as well as atrial tachycardia. Patient presented to the emergency center with complaints of unsteadiness ataxia with nausea. Cardiology consult was requested due to arrhythmia. Patient had felt some palpitations on and off and nausea and vomiting. She denied having any chest discomfort. She had some mild chronic peripheral edema. She has not been on anticoagulation in the past. Plan was to continue beta josefa and obtain echocardiogram. Patient may require evaluation for anticoagulation down the road. Echocardiogram reveals EF of 55%, mild aortic regurgitation, mild to moderate mitral regurgitation, mild tricuspid regurgitation. MRI of the brain reveals cerebral atrophy. Extensive white matter signal changes consistent with chronic small vessel ischemia. Demyelinating disease not excluded. No evidence of cortical infarct. Patient's been seen by neurology for vertigo and episodes of blurred vision in the left eye PHYSICAL EXAMINATION Gen: This is an 89-year-old female patient. She is sitting up in bed appears to be comfortable and in no acute distress. VS: Afebrile, heart rate 53, blood pressure 143/69, pulse ox 96% on room air. HEENT: Head is atraumatic, normocephalic. Pupils equal, round. Sclerae is anicteric. NECK: Supple. No JVD. No lymphadenopathy. No thyromegaly. LUNGS: Clear to auscultation. No wheezes or rhonchi. No intercostal retractions. HEART: Regular rate and rhythm. 2/6 systolic ejection murmur at the base murmur. ABDOMEN: Soft. Bowel sounds are present. No masses. No tenderness. EXTREMITIES: No pedal edema. No calf tenderness. NEUROLOGICAL: Patient is awake, alert and oriented x3. Cranial nerves 2 through 12 are grossly intact. ASSESSMENT Unsteadiness and ataxia of unclear etiology History of paroxysmal atrial flutter/fibrillation with episode of atrial tachycardia Coronary artery disease Hypertension Hyperlipidemia PLAN We have started patient on meclizine 12.5 mg twice daily Patient is cleared for discharge from cardiology Thank you kindly for this consultation. Nurse practitioner note has been reviewed, I agree with documented findings and plan of care. Patient was seen and examined. Objective - Vital Signs Vital signs: Vital Signs Temp 97.4 F L 03/24/21 07:00 Pulse 53 L 03/24/21 08:00 Resp 16 11/13/21 08:00 BP 143/69 03/24/21 07:00 Pulse Ox 96 03/24/21 07:00 Intake & Output 03/23/21 03/24/21 03/24/21 18:59 06:59 18:59 Intake Total 240 Balance 240 Weight 70.76 kg Intake: Oral 240 Other: Voiding Method Toilet Toilet # Voids 2 - Labs CBC & Chem 7: 03/23/21 07:20 03/24/21 06:18 Labs: Abnormal Lab Results - Last 24 Hours (Table) 03/23/21 03/23/21 03/23/21 Range/Units 07:25 17:48 20:14 BUN (7-17) mg/dL Glucose (74-99) mg/dL POC Glucose (mg/dL) 134 H 159 H (75-99) mg/dL Vitamin B12 1148.0 H (200.0-944.0) pg/mL 03/24/21 03/24/21 Range/Units 06:18 07:43 BUN 20 H (7-17) mg/dL Glucose 126 H (74-99) mg/dL POC Glucose (mg/dL) 121 H (75-99) mg/dL Vitamin B12 (200.0-944.0) pg/mL
[2021-03-24 15:20] VITALS: BP 122/79; PULSE 127; RESP 20; TEMP 98
--- NOTE | 2021-03-24 16:03 | P.DS ---
Providers Date of admission: 03/22/21 20:26 Expected date of discharge: 03/24/21 Attending physician: Delvis Darling MD Consults: 03/22/21 20:28 Consult Physician Urgent Consulting Provider: Adonay Orozco Consult Reason/Comments: acute ataxia Do you want consulting provider notified?: Yes Consult Physician Urgent Consulting Provider: [facility] Consult Reason/Comments: acute tachycardia-bradycardia Do you want consulting provider notified?: Yes Primary care physician: Greer Darling Patient Condition at Discharge: Stable Plan - Discharge Summary Discharge Rx Participant: No New Discharge Prescriptions: New Meclizine [Antivert] 12.5 mg PO BID PRN #15 tab PRN Reason: Vertigo Continue Lactase [Lactaid] 3,000 unit PO DAILY PRN PRN Reason: WITH dairy Ubidecarenone [Co Q-10] 200 mg PO DAILY Biotin 5 mg PO DAILY Multivitamins, Thera [Multivitamin (formulary)] 1 tab PO DAILY Omeprazole 40 mg PO DAILY amLODIPine [Norvasc] 10 mg PO DAILY Metoprolol Succinate [Toprol XL] 100 mg PO DAILY Montelukast [Singulair] 10 mg PO HS ALPRAZolam [Xanax] 0.25 mg PO QID PRN PRN Reason: Anxiety Timolol 0.5% Ophth Soln [Timoptic 0.5% Ophth Soln] 1 drop BOTH EYES DAILY Levothyroxine Sodium [Synthroid] 125 mcg PO DAILY Pyridoxine HCl (Vitamin B6) [Vitamin B-6] 100 mg PO DAILY Telmisartan/Hydrochlorothiazid [Telmisartan-Hctz 80-12.5 mg Tb] 1 tab PO DAILY Discharge Medication List Biotin 5 mg PO DAILY 09/26/15 [History] Lactase [Lactaid] 3,000 unit PO DAILY PRN 09/26/15 [History] Metoprolol Succinate [Toprol XL] 100 mg PO DAILY 09/26/15 [History] Multivitamins, Thera [Multivitamin (formulary)] 1 tab PO DAILY 09/26/15 [History] Omeprazole 40 mg PO DAILY 09/26/15 [History] Ubidecarenone [Co Q-10] 200 mg PO DAILY 09/26/15 [History] amLODIPine [Norvasc] 10 mg PO DAILY 09/26/15 [History] ALPRAZolam [Xanax] 0.25 mg PO QID PRN 01/16/16 [History] Montelukast [Singulair] 10 mg PO HS 01/16/16 [History] Levothyroxine Sodium [Synthroid] 125 mcg PO DAILY 03/22/21 [History] Pyridoxine HCl (Vitamin B6) [Vitamin B-6] 100 mg PO DAILY 03/22/21 [History] Telmisartan/Hydrochlorothiazid [Telmisartan-Hctz 80-12.5 mg Tb] 1 tab PO DAILY 03/22/21 [History] Timolol 0.5% Ophth Soln [Timoptic 0.5% Ophth Soln] 1 drop BOTH EYES DAILY 03/22/21 [History] Meclizine [Antivert] 12.5 mg PO BID PRN #15 tab 03/24/21 [Rx] Follow up Appointment(s)/Referral(s): Greer Darling DO [Primary Care Provider] - 1-2 days Discharge Disposition: HOME SELF-CARE
[2021-03-24] MEDS ORDERED: METOPROLOL SUCCINATE (ER) 100 MG TAB.ER.24H PO SCH (21:00)
== END 2021-03-24 17:04 | disposition home or self-care (01) ==
LOC: EC 14:16 → 6NMEDSUR 20:26
PROVIDERS: ADMIT Family Medicine; ATTEND Family Medicine
DX: R41.82 Altered mental status, unspecified (principal); R55 Syncope and collapse; I47.1 Supraventricular tachycardia; R27.8 Other lack of coordination; H53.8 Other visual disturbances; Z20.822 Contact with and (suspected) exposure to COVID-19; H93.19 Tinnitus, unspecified ear; I25.2 Old myocardial infarction; I49.5 Sick sinus syndrome; R00.2 Palpitations; R11.2 Nausea with vomiting, unspecified; E11.9 Type 2 diabetes mellitus without complications; E78.5 Hyperlipidemia, unspecified; I10 Essential (primary) hypertension; I25.10 Atherosclerotic heart disease of native coronary artery without angina pectoris; I48.0 Paroxysmal atrial fibrillation; I48.92 Unspecified atrial flutter; G47.30 Sleep apnea, unspecified; G62.9 Polyneuropathy, unspecified; R60.0 Localized edema; H91.90 Unspecified hearing loss, unspecified ear; F41.9 Anxiety disorder, unspecified; L98.9 Disorder of the skin and subcutaneous tissue, unspecified; Z79.899 Other long term (current) drug therapy; Z88.6 Allergy status to analgesic agent; Z88.5 Allergy status to narcotic agent; Z88.8 Allergy status to other drugs, medicaments and biological substances; Z88.9 Allergy status to unspecified drugs, medicaments and biological substances; Z91.011 Allergy to milk products; Z91.048 Other nonmedicinal substance allergy status; Z79.890 Hormone replacement therapy; Z90.710 Acquired absence of both cervix and uterus; Z97.4 Presence of external hearing-aid; Z90.49 Acquired absence of other specified parts of digestive tract; Z86.718 Personal history of other venous thrombosis and embolism; Z87.442 Personal history of urinary calculi; Z80.8 Family history of malignant neoplasm of other organs or systems; Z82.49 Family history of ischemic heart disease and other diseases of the circulatory system
CPT/HCPCS: 99285; 36415; 93005; 93306; 80053; 80048 ×2; 84443; 82607; 82746; 83735; 84484; 85025 ×2; 81001; 80306; 83036; 87635; 70496; 70450; 70498; 70551; G0378 ×3; G0480; Q9967; 80320

== ENCOUNTER 2021-12-15 20:12 | Emergency (ER) | payer MEDICARE, BC ==
--- NOTE | 2021-12-15 21:14 | ED ---
Female Urogenital HPI - General Chief complaint: Urogenital Stated complaint: Blood in Urine, On Thinners Time Seen by Provider: 12/15/21 20:31 Source: patient, RN notes reviewed Mode of arrival: ambulatory Limitations: no limitations - History of Present Illness Initial comments: The pleasant 89-year-old female presents doll by complain one bout of hematuria this morning. Patient states she is on Eliquis for atrial fibrillation. Patient essentially asymptomatic otherwise. Denying any other bleeding sites. No nosebleeds. No blood in the stool. No dark tarry stools. No vomiting. No headache, no fever or chills, no changes in vision or hearing, no sore throat or difficulty with speech, no neck pain, no chest pain or shortness of breath, no abdominal pain, no nausea or vomiting, no changes bowel movements, no numb ness or tingling, no extremity pain, no skin rashes or lesions. Past medical, surgical, social, and family history reviewed. - Related Data Home Medications Medication Instructions Recorded Confirmed Biotin 5 mg PO DAILY 09/26/15 03/22/21 Lactase [Lactaid] 3,000 unit PO DAILY PRN 09/26/15 03/22/21 Metoprolol Succinate [Toprol XL] 100 mg PO DAILY 09/26/15 03/22/21 Multivitamins, Thera [Multivitamin 1 tab PO DAILY 09/26/15 03/22/21 (formulary)] Omeprazole 40 mg PO DAILY 09/26/15 03/22/21 Ubidecarenone [Co Q-10] 200 mg PO DAILY 09/26/15 03/22/21 amLODIPine [Norvasc] 10 mg PO DAILY 09/26/15 03/22/21 ALPRAZolam [Xanax] 0.25 mg PO QID PRN 01/16/16 03/22/21 Montelukast [Singulair] 10 mg PO HS 01/16/16 03/22/21 Levothyroxine Sodium [Synthroid] 125 mcg PO DAILY 03/22/21 03/22/21 Pyridoxine HCl (Vitamin B6) 100 mg PO DAILY 03/22/21 03/22/21 [Vitamin B-6] Telmisartan/Hydrochlorothiazid 1 tab PO DAILY 03/22/21 03/22/21 [Telmisartan-Hctz 80-12.5 mg Tb] Timolol 0.5% Ophth Soln [Timoptic 1 drop BOTH EYES DAILY 03/22/21 03/22/21 0.5% Ophth Soln] Previous Rx's Medication Instructions Recorded Meclizine [Antivert] 12.5 mg PO BID PRN #15 tab 03/24/21 Allergies Allergy/AdvReac Type Severity Reaction Status Date / Time aspirin Allergy Rash/Hives Verified 12/15/21 20:30 flunisolide [From Nasarel] Allergy Rash/Hives Verified 12/15/21 20:30 ibuprofen Allergy Rash/Hives Verified 12/15/21 20:30 morphine Allergy red Verified 12/15/21 20:30 streaking when given in the IV atorvastatin calcium AdvReac Abdominal Verified 12/15/21 20:30 [From Lipitor] Pain clonidine HCl [From Catapres] AdvReac HYPERTENSIO Verified 12/15/21 20:30 N fenofibrate nanocrystallized AdvReac Abdominal Verified 12/15/21 20:30 [From Tricor] Pain fenofibrate,micronized AdvReac Abdominal Verified 12/15/21 20:30 [From Tricor] Pain lactose AdvReac Diarrhea Verified 12/15/21 20:30 losartan [Losartan] AdvReac Confusion Verified 12/15/21 20:30 nedocromil sodium AdvReac Unknown Verified 12/15/21 20:30 [From Tilade] Niacin Preparations AdvReac skin Verified 12/15/21 20:30 tenderness pirbuterol acetate AdvReac Rapid Verified 12/15/21 20:30 [From Maxair Autohaler] Heart Rate simvastatin [From Zocor] AdvReac Abdominal Verified 12/15/21 20:30 Pain Ftbbgae-CSK-FiH Reductase AdvReac Abdominal Verified 12/15/21 20:30 Inhibitor Pain [Mrslwfb-Ebk-Ftv Reductase Inhibitor] TAPE AdvReac BLISTERING Uncoded 12/15/21 20:30 AND SKIN TEARING WTIH SURGICAL TAPE W/ OR . Review of Systems ROS Statement: Those systems with pertinent positive or pertinent negative responses have been documented in the HPI. ROS Other: All systems not noted in ROS Statement are negative. Past Medical History Past Medical History: Coronary Artery Disease (CAD), Cancer, Chest Pain / Angina, Diabetes Mellitus, Deep Vein Thrombosis (DVT), Hearing Disorder / Deafness, Hyperlipidemia, Myocardial Infarction (DC), Skin Disorder, Sleep Apnea/CPAP/BIPAP Additional Past Medical History / Comment(s): 10/06/15 EC VISIT, FALL WITH HEAD INJURY, CT SCAN WAS NEG. HISTORY OF TACHYCARDIA. SOB, LEG SWELLING. WAS NOT GIVEN BLOOD THINNERS FOR DVT. Skin ca. Kidney stones Last Myocardial Infarction Date:: AUGUST 1993 History of Any Multi-Drug Resistant Organisms: None Reported Past Surgical History: Appendectomy, Cholecystectomy, Heart Catheterization, Hysterectomy, Tonsillectomy Additional Past Surgical History / Comment(s): HEART CATH ANGIOPLASTY (1993). carpel [place] throat skin, lithotrypsy Past Anesthesia/Blood Transfusion Reactions: Motion Sickness Past Psychological History: Anxiety Smoking Status: Never smoker Past Alcohol Use History: None Reported Past Drug Use History: None Reported - Past Family History Father Additional Family Medical History / Comment(s): RUPTURED ANUERYSM. Mother Additional Family Medical History / Comment(s): skin ca General Exam - General Exam Comments Initial Comments: This is a well-developed, well-nourished elderly female in no acute distress. Patient does not appear to be ill or toxic. Cranial nerves II through XII grossly intact. Limitations: no limitations General appearance: alert, in no apparent distress Head exam: Present: atraumatic, normocephalic, normal inspection Eye exam: Present: normal appearance, PERRL, EOMI. Absent: scleral icterus, conjunctival injection, periorbital swelling ENT exam: Present: normal exam, normal oropharynx, mucous membranes moist, normal external ear exam. Absent: mucous membranes dry Neck exam: Present: normal inspection, full ROM. Absent: tenderness, meningismus, lymphadenopathy Respiratory exam: Present: normal lung sounds bilaterally. Absent: respiratory distress, wheezes, rales, rhonchi, stridor Cardiovascular Exam: Present: regular rate, normal rhythm, normal heart sounds. Absent: systolic murmur, diastolic murmur, rubs, gallop, clicks GI/Abdominal exam: Present: soft, normal bowel sounds. Absent: distended, tenderness, guarding, rebound, rigid Extremities exam: Present: normal inspection, full ROM, normal capillary refill. Absent: tenderness, pedal edema, joint swelling, calf tenderness Back exam: Present: normal inspection. Absent: CVA tenderness (R), CVA tenderness (L) Neurological exam: Present: alert, oriented X3, CN II-XII intact Psychiatric exam: Present: normal affect, normal mood Skin exam: Present: warm, dry, intact, normal color. Absent: rash Course Vital Signs 12/15/21 20:26 Temperature 98.1 F Pulse Rate 104 H Respiratory 20 Rate Blood Pressure 138/80 O2 Sat by Pulse 95 Oximetry - Reevaluation(s) Reevaluation #1: 12/15/21 21:51 Medical record is reviewed Patient asymptomatic Patient is informed of results and questions answered Patient in no distress Medical Decision Making - Medical Decision Making Essentially asymptomatic. Suspect idiopathic hematuria, likely secondary to Eliquis. Patient does not appear to be volume depleted. Does not appear to be in any distress. In the patient's age I am going to order basic labs as well as a CT of the abdomen without contrast. Does not appear to be consistent with renal stone although the patient states that she occasionally will get some discomfort in her left lower quadrant. Patient had no abdominal tenderness currently. Patient has multiple bilateral renal calculi when compared to the old exam. There is clearing of left renal obstruction compared to exam. Diverticulosis without diverticulitis, large hiatal hernia, slight cardiomegaly, cholecystectomy clips No definitive findings which would explain the hematuria. Although the patient could've passed a kidney stone. Patient is in no distress at this time. We'll have the patient follow-up with her primary care physician and urology. Patient was told to return to the ER for any signs or symptoms worsen. Told to return immediately if any other problems arise. All questions answered. Treatment plan discussed. Patient in agreement Every effort has been made to ensure accuracy of this dictation. However, due to the limitations of electronic medical records and dictation devices, errors in charting still occur. The case was discussed in detail with ED attending physician. Presentation, findings, treatment plan discussed in detail. Physician Interventional Cardiologist Dr. Rousseau - Lab Data Result diagrams: 12/15/21 20:57 12/15/21 20:57 Lab Results 12/15/21 12/15/21 12/15/21 Range/Units 20:57 20:57 21:29 WBC 6.4 (3.8-10.6) k/uL RBC 4.94 (3.80-5.40) m/uL Hgb 15.3 (11.4-16.0) gm/dL Hct 44.0 (34.0-46.0) % MCV 89.1 (80.0-100.0) fL MCH 30.9 (25.0-35.0) pg MCHC 34.7 (31.0-37.0) g/dL RDW 12.7 (11.5-15.5) % Plt Count 171 (150-450) k/uL MPV 7.9 Neutrophils % 51 % Lymphocytes % 37 % Monocytes % 6 % Eosinophils % 2 % Basophils % 0 % Neutrophils # 3.3 (1.3-7.7) k/uL Lymphocytes # 2.4 (1.0-4.8) k/uL Monocytes # 0.4 (0-1.0) k/uL Eosinophils # 0.2 (0-0.7) k/uL Basophils # 0.0 (0-0.2) k/uL Sodium 137 (137-145) mmol/L Potassium 4.2 (3.5-5.1) mmol/L Chloride 102 (98-107) mmol/L Carbon Dioxide 27 (22-30) mmol/L Anion Gap 8 mmol/L BUN 27 H (7-17) mg/dL Creatinine 1.17 H (0.52-1.04) mg/dL Est GFR (CKD-EPI)AfAm 48 (>60 ml/min/1.73 sqM) Est GFR (CKD-EPI)NonAf 41 (>60 ml/min/1.73 sqM) Glucose 112 H (74-99) mg/dL Calcium 9.0 (8.4-10.2) mg/dL Total Bilirubin 0.6 (0.2-1.3) mg/dL AST 38 H (14-36) U/L ALT 16 (4-34) U/L Alkaline Phosphatase 73 (38-126) U/L Total Protein 7.6 (6.3-8.2) g/dL Albumin 4.4 (3.5-5.0) g/dL Urine Color Light Yellow Urine Appearance Clear (Clear) Urine pH 5.5 (5.0-8.0) Ur Specific [place] 1.006 (1.001-1.035) Urine Protein Negative (Negative) Urine Glucose (UA) Negative (Negative) Urine Ketones Negative (Negative) Urine Blood Large H (Negative) Urine Nitrite Negative (Negative) Urine Bilirubin Negative (Negative) Urine Urobilinogen <2.0 (<2.0) mg/dL Ur Leukocyte Esterase Negative (Negative) Urine RBC 7 H (0-5) /hpf Urine WBC 3 (0-5) /hpf Ur Squamous Epith Cells 1 (0-4) /hpf Urine Bacteria Occasional H (None) /hpf Urine Mucus Rare H (None) /hpf - Radiology Data Radiology results: report reviewed, image reviewed Disposition Clinical Impression: Hematuria Narrative: Bilateral intrarenal stones, chronic hiatal hernia Disposition: HOME SELF-CARE Condition: Stable Instructions (If sedation given, give patient instructions): Hematuria (ED) Additional Instructions: No headache, no fever or chills, no changes in vision or hearing, no sore throat or difficulty with speech, no neck pain, no chest pain or shortness of breath, no abdominal pain, no nausea or vomiting, no changes in urination or bowel movements, no numbness or tingling, no extremity pain, no skin rashes or lesions. Past medical, surgical, social, and family history reviewed. Is patient prescribed a controlled substance at d/c from ED?: No Referrals: Greer Darling DO [Primary Care Provider] - 12/17/21 Jimy Galeano MD [STAFF PHYSICIAN] - 12/26/21 Time of Disposition: 22:03
[2021-12-15 21:17] LABS: Basophils % (A) 0 %; Eosinophils # (A) 0.2 k/uL (0-0.7); Eosinophils % (A) 2 %; HGB 15.3 gm/dL (11.4-16.0); Lymphocytes # (A) 2.4 k/uL (1.0-4.8); Lymphocytes % (A) 37 %; MCH 30.9 pg (25.0-35.0); MCHC 34.7 g/dL (31.0-37.0); MCV 89.1 fL (80.0-100.0); Mean Platelet Volume 7.9; Monocytes # (A) 0.4 k/uL (0-1.0); Monocytes % (A) 6 %; Neutrophils # (A) 3.3 k/uL (1.3-7.7); Neutrophils % (A) 51 %; Platelet Count 171 k/uL (150-450); RBC 4.94 m/uL (3.80-5.40); RDW 12.7 % (11.5-15.5); WBC 6.4 k/uL (3.8-10.6)
[2021-12-15 21:31] LABS: Albumin 4.4 g/dL (3.5-5.0); Total Bilirubin 0.6 mg/dL (0.2-1.3); Total Protein 7.6 g/dL (6.3-8.2)
--- NOTE | 2021-12-15 21:44 | CT ---
EXAMINATION TYPE: CT kidney stone wo con DATE OF EXAM: 12/15/2021 COMPARISON: 02/25/2019 HISTORY: Hematuria, generalized abdominal pain CT DLP: 549.4 mGycm Automated exposure control for dose reduction was used. Images obtained from the diaphragm to the floor the pelvis with no contrast. Lung bases show some mild increased interstitial density. There is large hiatal hernia. Heart is slig htly enlarged. No pleural effusion. No pericardial effusion. There are numerous calcified splenic gra nulomata. There are clips from cholecystectomy. The bile ducts are not dilated. No pancreatic mass. There is no adrenal mass. There are multiple bilateral renal calculi and larger on the left side. Paul culi measure up to almost 2 cm. There is some fullness of the right renal pelvis. Right ureter not di lated. Abdominal aorta is atheromatous. Bladder distends smoothly. No inguinal hernia. No free fluid in the pelvis. There are sigmoid diverticula. No diverticulitis. There is no mesenteric edema. No ascites or free air. The lumbar vertebra appear intact. No compression fracture. There is multilevel lumbar spondylotic ch anges. The bony pelvis is intact. The hip joints are intact. IMPRESSION: Multiple bilateral renal calculi which appear increased compared to the old exam. There is clearing o f the left renal obstruction compared to old exam. Colonic diverticulosis without diverticulitis. There is fibrotic changes and subsegmental atelectasis at the lung bases similar to old exam.
[2021-12-15 21:55] LABS: Potassium 4.2 mmol/L (3.5-5.1)
[2021-12-15 21:55] LABS: Appearance,Urine Clear (Clear); Bacteria,Urine Occasional /hpf; Bilirubin,Urine Negative (Negative); Blood,Urine Large (Negative); Color,Urine Light Yellow; Glucose,Urine (UA) Negative (Negative); Ketones,Urine Negative (Negative); Leukocyte Esterase,Urine Negative (Negative); Mucus,Urine Rare /hpf; Nitrite,Urine Negative (Negative); PH, Urine 5.5 (5.0-8.0); Protein,Urine Negative (Negative); RBC,Urine 7 /hpf (0-5); Specific Gravity,Urine 1.006 (1.001-1.035); Squamous Epithelial Cell,Urine 1 /hpf (0-4); Urobilinogen,Urine <2.0 mg/dL (<2.0); WBC,Urine 3 /hpf (0-5)
[2021-12-15 22:48] VITALS: BP 121/79; PULSE 99; RESP 16; TEMP 98
== END 2021-12-15 22:48 | disposition home or self-care (01) ==
LOC: EC 20:12
DX: N20.0 Calculus of kidney (principal); K44.9 Diaphragmatic hernia without obstruction or gangrene; E11.9 Type 2 diabetes mellitus without complications; I25.2 Old myocardial infarction; E78.5 Hyperlipidemia, unspecified; I48.91 Unspecified atrial fibrillation; Z88.8 Allergy status to other drugs, medicaments and biological substances; Z88.1 Allergy status to other antibiotic agents; Z91.09 Other allergy status, other than to drugs and biological substances; Z88.5 Allergy status to narcotic agent; Z88.6 Allergy status to analgesic agent; Z79.899 Other long term (current) drug therapy; Z91.011 Allergy to milk products; Z79.01 Long term (current) use of anticoagulants
CPT/HCPCS: 36415; 74176; 80053; 81001; 85025; 99284

== ENCOUNTER 2022-03-15 23:43 | Emergency (ER) | payer MEDICARE, BC ==
[2022-03-15] MEDS ORDERED: SODIUM CHLORIDE 0.9% 1,000 ML IV STA (23:54)
[2022-03-15] MEDS ORDERED: HYDROmorphone 0.5 MG/0.5 ML SYRINGE IVP STA (23:55)
--- NOTE | 2022-03-15 23:57 | ED ---
Abdominal Pain HPI - General Chief Complaint: Back Pain/Injury Stated Complaint: Abd Pain Time Seen by Provider: 03/15/22 23:54 Source: patient, RN notes reviewed, old records reviewed Mode of arrival: wheelchair Limitations: no limitations - History of Present Illness Initial Comments: This is a 89-year-old female to the emergency department for evaluation she presents today for evaluation of severe back pain. Patient has severe back pain with history of kidney stones as well as pain feels worse. No trauma no fevers no dysuria. Positive nausea no active vomiting. MD Complaint: abdominal pain, flank pain (Left flank) Location: suprapubic, L flank Radiation: suprapubic, back Migration to: suprapubic, L flank Severity: severe Severity scale (1-10): 9 Quality: stabbing, aching Consistency: constant Improves With: nothing Worsens With: nothing Associated Symptoms: nausea Treatments Prior to Arrival: other (0) - Related Data Home Medications Medication Instructions Recorded Confirmed Biotin 5 mg PO DAILY 09/26/15 03/22/21 Lactase [Lactaid] 3,000 unit PO DAILY PRN 09/26/15 03/22/21 Metoprolol Succinate [Toprol XL] 100 mg PO DAILY 09/26/15 03/22/21 Multivitamins, Thera [Multivitamin 1 tab PO DAILY 09/26/15 03/22/21 (formulary)] Omeprazole 40 mg PO DAILY 09/26/15 03/22/21 Ubidecarenone [Co Q-10] 200 mg PO DAILY 09/26/15 03/22/21 amLODIPine [Norvasc] 10 mg PO DAILY 09/26/15 03/22/21 ALPRAZolam [Xanax] 0.25 mg PO QID PRN 01/16/16 03/22/21 Montelukast [Singulair] 10 mg PO HS 01/16/16 03/22/21 Levothyroxine Sodium [Synthroid] 125 mcg PO DAILY 03/22/21 03/22/21 Pyridoxine HCl (Vitamin B6) 100 mg PO DAILY 03/22/21 03/22/21 [Vitamin B-6] Telmisartan/Hydrochlorothiazid 1 tab PO DAILY 03/22/21 03/22/21 [Telmisartan-Hctz 80-12.5 mg Tb] Timolol 0.5% Ophth Soln [Timoptic 1 drop BOTH EYES DAILY 03/22/21 03/22/21 0.5% Ophth Soln] Previous Rx's Medication Instructions Recorded Meclizine [Antivert] 12.5 mg PO BID PRN #15 tab 03/24/21 Allergies Allergy/AdvReac Type Severity Reaction Status Date / Time aspirin Allergy Rash/Hives Verified 03/15/22 23:47 flunisolide [From Nasarel] Allergy Rash/Hives Verified 03/15/22 23:47 ibuprofen Allergy Rash/Hives Verified 03/15/22 23:47 morphine Allergy red Verified 03/15/22 23:47 streaking when given in the IV atorvastatin calcium AdvReac Abdominal Verified 03/15/22 23:47 [From Lipitor] Pain clonidine HCl [From Catapres] AdvReac HYPERTENSIO Verified 03/15/22 23:47 N fenofibrate nanocrystallized AdvReac Abdominal Verified 03/15/22 23:47 [From Tricor] Pain fenofibrate,micronized AdvReac Abdominal Verified 03/15/22 23:47 [From Tricor] Pain lactose AdvReac Diarrhea Verified 03/15/22 23:47 losartan [Losartan] AdvReac Confusion Verified 03/15/22 23:47 nedocromil sodium AdvReac Unknown Verified 03/15/22 23:47 [From Tilade] Niacin Preparations AdvReac skin Verified 03/15/22 23:47 tenderness pirbuterol acetate AdvReac Rapid Verified 03/15/22 23:47 [From Maxair Autohaler] Heart Rate simvastatin [From Zocor] AdvReac Abdominal Verified 03/15/22 23:47 Pain Bzvyess-NUK-EfB Reductase AdvReac Abdominal Verified 03/15/22 23:47 Inhibitor Pain [Nbponuy-Luh-Bbl Reductase Inhibitor] TAPE AdvReac BLISTERING Uncoded 03/15/22 23:47 AND SKIN TEARING WTIH SURGICAL TAPE W/ OR . Review of Systems ROS Statement: Those systems with pertinent positive or pertinent negative responses have been documented in the HPI. ROS Other: All systems not noted in ROS Statement are negative. Past Medical History Past Medical History: Coronary Artery Disease (CAD), Cancer, Chest Pain / Angina, Diabetes Mellitus, Deep Vein Thrombosis (DVT), Hearing Disorder / Deafness, Hyperlipidemia, Myocardial Infarction (ME), Skin Disorder, Sleep Apnea/CPAP/BIPAP Additional Past Medical History / Comment(s): 10/06/15 EC VISIT, FALL WITH HEAD INJURY, CT SCAN WAS NEG. HISTORY OF TACHYCARDIA. SOB, LEG SWELLING. WAS NOT GIVEN BLOOD THINNERS FOR DVT. Skin ca. Kidney stones Last Myocardial Infarction Date:: AUGUST 1993 History of Any Multi-Drug Resistant Organisms: None Reported Past Surgical History: Appendectomy, Cholecystectomy, Heart Catheterization, Hysterectomy, Tonsillectomy Additional Past Surgical History / Comment(s): HEART CATH ANGIOPLASTY (1993). carpel [place] throat skin, lithotrypsy Past Anesthesia/Blood Transfusion Reactions: Motion Sickness Past Psychological History: Anxiety Smoking Status: Never smoker Past Alcohol Use History: None Reported Past Drug Use History: None Reported - Past Family History Father Additional Family Medical History / Comment(s): RUPTURED ANUERYSM. Mother Additional Family Medical History / Comment(s): skin ca General Exam Limitations: no limitations General appearance: alert, in no apparent distress, anxious Head exam: Present: atraumatic, normocephalic, normal inspection Eye exam: Present: normal appearance, PERRL, EOMI. Absent: scleral icterus, conjunctival injection, periorbital swelling ENT exam: Present: normal exam, mucous membranes moist Neck exam: Present: normal inspection. Absent: tenderness, meningismus, lymphadenopathy Respiratory exam: Present: normal lung sounds bilaterally. Absent: respiratory distress, wheezes, rales, rhonchi, stridor Cardiovascular Exam: Present: normal rhythm, tachycardia, normal heart sounds. Absent: systolic murmur, diastolic murmur, rubs, gallop, clicks GI/Abdominal exam: Present: soft, guarding, normal bowel sounds. Absent: distended, rebound, rigid Extremities exam: Present: normal inspection, full ROM, normal capillary refill. Absent: tenderness, pedal edema, joint swelling, calf tenderness Back exam: Present: normal inspection Neurological exam: Present: alert, oriented X3, CN II-XII intact Psychiatric exam: Present: normal affect, normal mood Skin exam: Present: warm, dry, intact, normal color. Absent: rash Course Vital Signs 03/15/22 03/15/22 03/16/22 23:44 23:59 00:47 Temperature 98.9 F 98 F Pulse Rate 129 H 86 100 Respiratory 20 16 16 Rate Blood Pressure 135/70 136/87 125/75 O2 Sat by Pulse 95 96 99 Oximetry 03/16/22 03/16/22 01:26 02:17 Temperature Pulse Rate 98 Respiratory 18 16 Rate Blood Pressure 124/78 121/82 O2 Sat by Pulse 99 99 Oximetry - Reevaluation(s) Reevaluation #1: 03/16/22 Medical record is reviewed Reevaluation #2: 03/16/22 Patient's pain is improved Reevaluation #3: 03/16/22 Patient is informed Upon results, questions are answered Medical Decision Making - Medical Decision Making 89 female to the emergency department for evaluation patient with severe back pain patient does have positive kidney stone left-sided small will pass on its own given pain control feels well and can be discharged - Lab Data Result diagrams: 03/16/22 00:17 03/16/22 00:17 Lab Results 03/16/22 03/16/22 03/16/22 Range/Units 00:17 00:17 00:17 WBC 11.5 H (3.8-10.6) k/uL RBC 4.18 (3.80-5.40) m/uL Hgb 12.9 (11.4-16.0) gm/dL Hct 37.7 (34.0-46.0) % MCV 90.0 (80.0-100.0) fL MCH 30.8 (25.0-35.0) pg MCHC 34.2 (31.0-37.0) g/dL RDW 12.8 (11.5-15.5) % Plt Count 144 L (150-450) k/uL MPV 10.0 Neutrophils % 83 % Lymphocytes % 10 % Monocytes % 6 % Eosinophils % 0 % Basophils % 0 % Neutrophils # 9.5 H (1.3-7.7) k/uL Lymphocytes # 1.1 (1.0-4.8) k/uL Monocytes # 0.7 (0-1.0) k/uL Eosinophils # 0.0 (0-0.7) k/uL Basophils # 0.0 (0-0.2) k/uL Manual Slide Review Performed PT 10.9 (9.0-12.0) sec INR 1.0 (<1.2) APTT 27.9 (22.0-30.0) sec Sodium 133 L (137-145) mmol/L Potassium 4.3 (3.5-5.1) mmol/L Chloride 98 (98-107) mmol/L Carbon Dioxide 21 L (22-30) mmol/L Anion Gap 14 mmol/L BUN 25 H (7-17) mg/dL Creatinine 1.31 H (0.52-1.04) mg/dL Est GFR (CKD-EPI)AfAm 42 (>60 ml/min/1.73 sqM) Est GFR (CKD-EPI)NonAf 36 (>60 ml/min/1.73 sqM) Glucose 178 H (74-99) mg/dL Plasma Lactic Acid [place] (0.7-2.0) mmol/L Calcium 9.0 (8.4-10.2) mg/dL Phosphorus 3.5 (2.5-4.5) mg/dL Magnesium 1.6 (1.6-2.3) mg/dL Total Bilirubin 1.4 H (0.2-1.3) mg/dL AST 39 H (14-36) U/L ALT 23 (4-34) U/L Alkaline Phosphatase 86 (38-126) U/L Troponin I (0.000-0.034) ng/mL Total Protein 7.4 (6.3-8.2) g/dL Albumin 4.3 (3.5-5.0) g/dL Amylase 75 (30-110) U/L Lipase 139 (23-300) U/L Urine Color Urine Appearance (Clear) Urine pH (5.0-8.0) Ur Specific [place] (1.001-1.035) Urine Protein (Negative) Urine Glucose (UA) (Negative) Urine Ketones (Negative) Urine Blood (Negative) Urine Nitrite (Negative) Urine Bilirubin (Negative) Urine Urobilinogen (<2.0) mg/dL Ur Leukocyte Esterase (Negative) Urine RBC (0-5) /hpf Urine WBC (0-5) /hpf Ur Squamous Epith Cells (0-4) /hpf Urine Bacteria (None) /hpf Urine Mucus (None) /hpf 03/16/22 03/16/22 03/16/22 Range/Units 00:17 00:17 01:28 WBC (3.8-10.6) k/uL RBC (3.80-5.40) m/uL Hgb (11.4-16.0) gm/dL Hct (34.0-46.0) % MCV (80.0-100.0) fL MCH (25.0-35.0) pg MCHC (31.0-37.0) g/dL RDW (11.5-15.5) % Plt Count (150-450) k/uL MPV Neutrophils % % Lymphocytes % % Monocytes % % Eosinophils % % Basophils % % Neutrophils # (1.3-7.7) k/uL Lymphocytes # (1.0-4.8) k/uL Monocytes # (0-1.0) k/uL Eosinophils # (0-0.7) k/uL Basophils # (0-0.2) k/uL Manual Slide Review PT (9.0-12.0) sec INR (<1.2) APTT (22.0-30.0) sec Sodium (137-145) mmol/L Potassium (3.5-5.1) mmol/L Chloride (98-107) mmol/L Carbon Dioxide (22-30) mmol/L Anion Gap mmol/L BUN (7-17) mg/dL Creatinine (0.52-1.04) mg/dL Est GFR (CKD-EPI)AfAm (>60 ml/min/1.73 sqM) Est GFR (CKD-EPI)NonAf (>60 ml/min/1.73 sqM) Glucose (74-99) mg/dL Plasma Lactic Acid [place] 1.8 (0.7-2.0) mmol/L Calcium (8.4-10.2) mg/dL Phosphorus (2.5-4.5) mg/dL Magnesium (1.6-2.3) mg/dL Total Bilirubin (0.2-1.3) mg/dL AST (14-36) U/L ALT (4-34) U/L Alkaline Phosphatase (38-126) U/L Troponin I <0.012 (0.000-0.034) ng/mL Total Protein (6.3-8.2) g/dL Albumin (3.5-5.0) g/dL Amylase (30-110) U/L Lipase (23-300) U/L Urine Color Yellow Urine Appearance Cloudy H (Clear) Urine pH 5.5 (5.0-8.0) Ur Specific [place] 1.014 (1.001-1.035) Urine Protein Trace H (Negative) Urine Glucose (UA) Negative (Negative) Urine Ketones Negative (Negative) Urine Blood Large H (Negative) Urine Nitrite Negative (Negative) Urine Bilirubin Negative (Negative) Urine Urobilinogen <2.0 (<2.0) mg/dL Ur Leukocyte Esterase Negative (Negative) Urine RBC >182 H (0-5) /hpf Urine WBC 3 (0-5) /hpf Ur Squamous Epith Cells <1 (0-4) /hpf Urine Bacteria Rare H (None) /hpf Urine Mucus Rare H (None) /hpf - Radiology Data Radiology results: report reviewed (CT head and pelvis positive for kidney stone), image reviewed Disposition Clinical Impression: Nausea and vomiting, Mechanical back pain, Mid back pain, Left ureteral calculus Disposition: HOME SELF-CARE Condition: Fair Instructions (If sedation given, give patient instructions): Kidney Stones (ED) Is patient prescribed a controlled substance at d/c from ED?: No Referrals: Greer Darling DO [Primary Care Provider] - 1-2 days Time of Disposition: 06:00
[2022-03-16] VITALS: TEMP 98
[2022-03-16 02:19] VITALS: BP 121/82; PULSE 98; RESP 16
--- NOTE | 2022-03-16 11:35 | CT ---
EXAMINATION TYPE: CT abdomen pelvis wo con DATE OF EXAM: 03/16/2022 COMPARISON: 12/15/2021 HISTORY: Abdominal pain CT DLP: mGycm Automated exposure control for dose reduction was used. Images obtained from the diaphragm to the floor the pelvis with no contrast. The lung bases show some mild atelectasis. There is a large hiatal hernia. There are numerous calcifi ed splenic granulomata. No pancreatic mass. There are clips from cholecystectomy. Liver is intact. No discrete liver mass. The bile ducts are not dilated. There is no adrenal mass. There is bilateral hydronephrosis. There are multiple bilateral renal calcu li that measure up to 1.4 cm. No evidence of a right-sided ureteral calculus. There is left-sided per inephric edema. There is left-sided hydroureter with obstructing calculus in the lower left ureter th at measures 8 mm. The bladder distends smoothly. No inguinal hernia. No free fluid in the pelvis. The re are sigmoid diverticula. No diverticulitis. No mesenteric edema. No ascites or free air. No sign of a bowel obstruction. There is a thoracolumbar mild kyphotic curvature. There is degenerative spurring throughout the lumba r spine. No significant compression fracture. The bony pelvis is intact. The hip joints appear intact . There is atherosclerotic vascular calcification. IMPRESSION: Obstructing calculus in the distal left ureter with moderate hydronephrosis and perinephric edema. Ob struction is new compared to old exam. Multiple bilateral renal calculi. No sign of right-sided renal acute obstruction. Old granulomatous disease. Large hiatal hernia. There is some mild scarring and atelectasis at the rojelio ng bases without change. Cardiomegaly. Colonic diverticulosis without diverticulitis.
[2022-03-16 17:04] LABS: Albumin 4.3 g/dL (3.5-5.0); Phosphorus 3.5 mg/dL (2.5-4.5); Potassium 4.3 mmol/L (3.5-5.1); Total Bilirubin 1.4 mg/dL (0.2-1.3); Total Protein 7.4 g/dL (6.3-8.2)
[2022-03-16 17:10] LABS: Partial Thromboplastin Time 27.9 sec (22.0-30.0); Prothrombin Time 10.9 sec (9.0-12.0)
[2022-03-16 17:13] LABS: Magnesium 1.6 mg/dL (1.6-2.3)
[2022-03-16 17:16] LABS: Basophils % (A) 0 %; Eosinophils % (A) 0 %; HCT 37.7 % (34.0-46.0); HGB 12.9 gm/dL (11.4-16.0); Lymphocytes # (A) 1.1 k/uL (1.0-4.8); Lymphocytes % (A) 10 %; MCH 30.8 pg (25.0-35.0); MCHC 34.2 g/dL (31.0-37.0); Monocytes # (A) 0.7 k/uL (0-1.0); Monocytes % (A) 6 %; Neutrophils # (A) 9.5 k/uL (1.3-7.7); Neutrophils % (A) 83 %; Platelet Count 144 k/uL (150-450); RBC 4.18 m/uL (3.80-5.40); RDW 12.8 % (11.5-15.5); WBC 11.5 k/uL (3.8-10.6)
[2022-03-16 18:02] LABS: Appearance,Urine Cloudy (Clear); Bacteria,Urine Rare /hpf; Bilirubin,Urine Negative (Negative); Blood,Urine Large (Negative); Color,Urine Yellow; Glucose,Urine (UA) Negative (Negative); Ketones,Urine Negative (Negative); Leukocyte Esterase,Urine Negative (Negative); Mucus,Urine Rare /hpf; Nitrite,Urine Negative (Negative); PH, Urine 5.5 (5.0-8.0); Protein,Urine Trace (Negative); RBC,Urine >182 /hpf (0-5); Specific Gravity,Urine 1.014 (1.001-1.035); Squamous Epithelial Cell,Urine <1 /hpf (0-4); Urobilinogen,Urine <2.0 mg/dL (<2.0); WBC,Urine 3 /hpf (0-5)
== END 2022-03-16 10:03 | disposition home or self-care (01) ==
LOC: EC 23:43
DX: N20.2 Calculus of kidney with calculus of ureter (principal); R11.2 Nausea with vomiting, unspecified; I25.10 Atherosclerotic heart disease of native coronary artery without angina pectoris; E11.9 Type 2 diabetes mellitus without complications; I82.409 Acute embolism and thrombosis of unspecified deep veins of unspecified lower extremity; E78.5 Hyperlipidemia, unspecified; I25.2 Old myocardial infarction; G47.30 Sleep apnea, unspecified; F41.9 Anxiety disorder, unspecified; Z79.84 Long term (current) use of oral hypoglycemic drugs; Z88.6 Allergy status to analgesic agent; Z88.8 Allergy status to other drugs, medicaments and biological substances; Z88.2 Allergy status to sulfonamides; Z88.1 Allergy status to other antibiotic agents; Z88.0 Allergy status to penicillin
CPT/HCPCS: 36415; 80053; 82150; 83605; 83690; 83735; 84100; 84484; 85025; 85610; 85730; 81001; 74176; 99284; 96374; J1170